=== PATIENT | female | born 1960 | race Hispanic/Latino ===

== ENCOUNTER 2016-06-22 12:22 | Inpatient (IN) | payer OTHER ==
[~2016-06-22] VITALS: Ht 162.6 cm; Wt 111.3 kg
--- NOTE | 2016-06-22 13:50 | REP ---
LEFT UPPER EXTREMITY DUPLEX VENOUS ULTRASOUND: HISTORY: Numbness in the left hand. Pain. Deformity and swelling. FINDINGS: The left internal jugular, left axillary, left subclavian, left brachial, left basilic and left cephalic veins are anechoic and compressible on two-dimensional scanning in the left upper extremity. Color flow imaging is homogeneous. There is no evidence of DVT. IMPRESSION: Negative left upper extremity duplex venous ultrasound. No evidence of venous thrombosis. Signed by Suleman Hutchinson MD 06/22/2016 02:06 P
[2016-06-22 15:25] LABS: BASO % 0.5 % (0.0-1.0); EOS # 0.2 K/mm3 (0.0-0.50); LARGE UNSTAINED CELL # 0.1 K/mm3 (0.0-0.4); LARGE UNSTAINED CELL % 1.3 % (0.0-4.0); LYMPH # 2.9 K/mm3 (1.5-4.5); LYMPH % 36.7 % (24.0-44.0); MEAN CORPUSCULAR HEMOGLOBIN 28.9 pg (27.0-33.0); MEAN CORPUSCULAR HGB CONC 31.5 g/dl (32.0-36.5); MEAN CORPUSCULAR VOLUME 91.7 fl (80.0-96.0); MONO # 0.3 K/mm3 (0.0-0.8); MONO % 3.3 % (0.0-5.0); NEUTROPHILS # 4.3 K/mm3 (1.8-7.7); NEUTROPHILS % 56.1 % (36.0-66.0); PLATELET COUNT, AUTOMATED 286 k/mm3 (150-450); RED CELL DISTRIBUTION WIDTH 14.1 % (11.5-14.5); WHITE BLOOD COUNT 7.6 K/mm3 (4.0-10.0)
--- NOTE | 2016-06-22 15:56 | REP ---
Chest x-ray: Two views. History: Chest pain . Comparison study: No comparison studies . Findings: The lungs are well inflated and free of infiltrate. The pleural angles are sharp. The heart size is normal. Pulmonary vasculature is not increased. No significant bony abnormality is seen. EKG electrodes are noted. Impression: Negative chest x-ray. Signed by Suleman Hutchinson MD 06/22/2016 03:48 P
[2016-06-22 15:57] LABS: ANION GAP 12 MEQ/L (8-16); BLOOD UREA NITROGEN 17 MG/DL (7-18); CALCIUM LEVEL 9.6 MG/DL (8.5-10.1); CARBON DIOXIDE LEVEL 25 MEQ/L (21-32); CHLORIDE LEVEL 101 MEQ/L (98-107); CREATININE FOR GFR 1.01 MG/DL (0.55-1.02); GLOMERULAR FILTRATION RATE > 60.0 (>51); POTASSIUM SERUM 4.7 MEQ/L (3.5-5.1); SODIUM LEVEL 138 MEQ/L (136-145)
[2016-06-22 16:04] LABS: GLUCOSE, FASTING 422 MG/DL (70-105)
--- NOTE | 2016-06-22 16:56 | ECGEPIP ---
Stationary ECG Study [facility] - ED Test Date: 2016-06-22 Pat Name: MAMIE HOWARD Department: Room: - Gender: F Data Officer: frances : 1960 Requested By: KEL Larson PA-C Order Number: [id number] Reading MD: Joss Perea Measurements Intervals [place] Rate: 89 P: 50 AK: 151 QRS: 11 QRSD: 80 T: 29 QT: 361 QTc: 440 Interpretive Statements SINUS RHYTHM Electronically Signed On 06-22-2016 16:55:46 EST by Joss Perea
--- NOTE | 2016-06-22 18:10 | REPUSA ---
CT of the chest without contrast Clinical statement: rule out mass. Possible thoracic outlet syndrome. Technique: Multiple axial CT images were obtained with 5 mm cuts through the chest without administra tion of contrast. No comparison is available. Findings: There is no thoracic lymphadenopathy. The visualized portions of the thyroid gland is unrem arkable. There are no pericardial or pleural effusions. The lungs are clear. Limited imaging of the u pper abdomen does not demonstrate any acute abnormalities. Diffuse heterogeneous low attenuation of h epatic parenchyma is noted. There are no suspicious osseous lesions. Impression: 1. Unremarkable CT examination of the chest. 2. Fatty infiltration of the liver.
[2016-06-22] MEDS ORDERED: GLUCOSE 4 GM CHEW TABLET PO PRN (21:45)
[2016-06-22] MEDS ORDERED: GLUCAGON FOR INJ 1 MG VIAL (J1610) SC PRN (21:45)
[2016-06-22] MEDS ORDERED: DEXTROSE 50% 50 ML SYRINGE IV PRN (21:45)
[2016-06-22] MEDS ORDERED: ONDANSETRON 4MG/2ML VIAL (J2405) IV PRN (22:30)
[2016-06-22] MEDS ORDERED: SYNT100T PO (22:34)
[2016-06-22] MEDS ORDERED: MELO15TA4 PO (22:34)
[2016-06-22] MEDS ORDERED: METF500T PO (22:34)
--- NOTE | 2016-06-22 23:57 | EDDOCDS ---
Physician Documentation [facility] Name: Gail Garcia Age: 56 yrs Sex: Female : 1960 Arrival Date: 06/22/2016 Time: 12:22 Bed 17 Private MD: NO PRIMARY PHYSICIAN, . Disposition: 06/22/16 22:05 Hospitalization ordered by Zulma Ibanez for Inpatient Admission. Preliminary diagnosis are Thromboangiitis obliterans [Buerger's disease] - AFFECTING LEFT HAND, Pain in left hand, Hyperglycemia, unspecified. - Bed requested for 4 [place]. - Status is Inpatient Admission. jewell - Condition is Stable. - Problem is new. - Symptoms are unchanged. Historical: - Allergies: PENICILLINS; Bactrim; IV Dye; - Home Meds: 1. metformin 500 mg Oral Tb24 2 times per day 2. levothyroxine 100 mcg Oral cap 1 cap once daily - PMHx: Diabetes - NIDDM: controlled; Thyroid problem; Arthritis; - PSHx: ganglion removed ankles; left breast surgery; Tubal ligation; D & C; - Social history: Smoking status: Patient states former smoker of tobacco. No barriers to communication noted, The patient speaks fluent Greek, Speaks appropriately for age. - Family history: Not pertinent. - : The pt / caregiver states he / she is not on anticoagulants. Home medication list is obtained from the patient. - Exposure Risk Screening:: None identified. Vital Signs: 06/22 12:24 BP 169 / 73; Pulse 104; Resp 18 S; Temp 98.3(O); Pulse Ox 100% on R/A; Weight 109.77 kg gr2 / 242 lbs (R); Height 5 ft. 4 in. (162.56 cm) (R); Pain 8/10; 14:51 Pulse 102 MON; Pulse Ox 97% ; pml 14:51 BP 169 / 94 (auto/); pml 15:05 BP 142 / 85 (auto/); pml 15:05 Pulse 92 MON; Pulse Ox 96% ; pml 15:20 Pulse 92 MON; Pulse Ox 95% ; pml 15:20 BP 133 / 78 (auto/); pml 15:35 Pulse Ox 95% ; pml 15:35 BP 143 / 85 (auto/); pml 15:50 Pulse Ox 95% ; pml 15:50 BP 163 / 91 (auto/); pml 16:05 Pulse Ox 94% ; pml 16:05 BP 137 / 85 (auto/); pml 16:20 Pulse Ox 96% ; pml 16:20 BP 144 / 92 (auto/); pml 16:35 Pulse Ox 96% ; pml 16:35 BP 142 / 81 (auto/); pml 16:49 Pulse Ox 95% ; pml 16:50 BP 132 / 79 (auto/); pml 17:11 BP 127 / 71 (auto/); pml 17:14 Pulse 98 MON; Pulse Ox 97% ; pml 17:20 Pulse 88 MON; Pulse Ox 96% ; pml 17:20 BP 119 / 68 (auto/); pml 17:35 Pulse 84 MON; Pulse Ox 96% ; pml 17:35 BP 125 / 69 (auto/); pml 17:50 Pulse 84 MON; Pulse Ox 95% ; pml 17:50 BP 127 / 73 (auto/); pml 18:05 Pulse 86 MON; Pulse Ox 95% ; pml 18:05 BP 130 / 74 (auto/); pml 18:20 Pulse 82 MON; Pulse Ox 95% ; pml 18:20 BP 131 / 74 (auto/); pml 18:35 Pulse 84 MON; Pulse Ox 96% ; pml 18:35 BP 120 / 63 (auto/); pml 18:50 BP 140 / 77 (auto/); ko2 18:50 Pulse 84 MON; Pulse Ox 97% ; ko2 19:04 Pulse 86 MON; Pulse Ox 97% ; ko2 19:05 BP 143 / 78 (auto/); ko2 19:19 BP 153 / 81 (auto/); ko2 19:19 Pulse 86 MON; Pulse Ox 96% ; ko2 19:21 BP 153 / 81; Pulse 86; Resp 18; Temp 97.7(TE); Pulse Ox 96% on R/A; Pain 5/10; surinder 19:35 BP 156 / 86 (auto/); ko2 19:35 Pulse 84 MON; Pulse Ox 98% ; ko2 19:50 BP 155 / 92 (auto/); ko2 19:50 Pulse 84 MON; Pulse Ox 98% ; ko2 23:26 BP 134 / 70; Pulse 89; Resp 16; Temp 97.7; Pulse Ox 98% ; Pain 5/10; ko2 12:24 Body Mass Index 41.54 (109.77 kg, 162.56 cm) gr2 MDM: 13:00 DVT US Upper Ordered. EDMS 14:38 Sprigger ordered. jk8 14:38 DVT US Upper Reviewed. jk8 14:39 Chest, 2 View (pa\E\lat) Ordered. EDMS 14:43 ECG WITH READING ER PHYS+CARDIAG ordered. EDMS 15:05 CBC with Diff Ordered. EDMS 15:05 BMP Ordered. EDMS 15:05 Cardiac Marker Panel Ordered. EDMS 15:25 DVT US Upper Reviewed. jk8 15:50 Financial registration complete. gjb 15:53 [facility] Payment Agreement was scanned into [employer] and attached to record. gjb 16:02 CBC with Diff Reviewed. jk8 16:09 Chest, 2 View (pa\E\lat) Reviewed. jk8 16:21 Cardiac Marker Panel Reviewed. jk8 16:21 BMP Reviewed. jk8 16:48 IV Saline Lock ordered. jk8 16:48 NS 0.9% 1000 ml IV at bolus once ordered. jk8 16:56 CT Chest Without Contrast Ordered. EDMS 19:19 Accucheck ordered. jk8 19:31 Fingerstick Blood Sugar Ordered. EDMS 19:56 MRI Screening Tool - Place on chart, inform RN ordered. dt4 19:56 [facility] ordered. dt4 19:57 ED course: SPOKE WITH DR. IBANEZ (HOSPITALIST) REGARDING THIS PT. ADVISED TO GET MRA OF THE dt4 LEFT SHOULDER/ARM AND SPEAK WITH HIM AGAIN WITH RESULTS. SPOKE WITH PT AND FAMILY MEMBER AT THIS TIME AND ALL IN AGREEMENT OF MRA AT THIS TIME. PT STATES HAD REACTION TO CT DYE IN THE PAST, BUT NOT MRI. PT VOICED UNDERSTANDING FOR MRA AT THIS TIME. RESTING IN BED IN NAD AT THIS TIME.. 19:58 [facility] Order complete. ajs 19:58 MRI Screening Tool - Place on chart, inform RN complete. ajs 20:24 ED course: AT THIS TIME, DR. IBANEZ CALLED AND SPOKE WITH DR. PERDUE (RADIOLOGY) AND HE WILL dt4 COME IN TO PERFORM THE MRA ON THIS PT. WILL DISCUSS RESULTS WITH DR. IBANEZ WHEN RECEIVED. . 20:30 MRA FOREARM W/O FOLL BY WITH Ordered. EDMS 21:14 NS 0.9% 500 ml IV at bolus once ordered. dt4 21:15 HEMOGLOBIN A1C Ordered. EDMS 21:51 ED course: CALL PLACED TO [facility] [place] AT THIS TIME, PER DR. IBANEZ, TO SPEAK WITH VASCULAR dt4 SURGEON REGARDING THIS PT'S MRI REPORT (CONSISTENT WITH BUERGER'S DISEASE). ADVISED IF NO SURGICAL INTERVENTION NEEDED TONIGHT, DRSara IBANEZ WILL ADMIT TO HIS SERVICE FOR GLUCOSE CONTROL. . 21:55 BED REQUEST+ADM ordered. EDMS 22:05 ED course: SPOKE WITH DR. CAMP, VASCULAR SURGEON AT [facility] IN [place], [facility]. ADVISED THERE IS NO VASCULAR INTERVENTION NEEDED OR AVAILABLE AT THIS TIME. ADVISED WHEN VASCULAR ISSUE OCCUR DISTAL TO THE WRIST, IT SHOULD BE ADDRESSED BY A HAND SURGEON. . 22:29 ELECTROCARDIOGRAM ADULT ordered. EDMS 22:29 ERYTHROCYTE SEDIMENTATION RATE Ordered. EDMS 22:29 THYROID PROFILE Ordered. EDMS 22:29 CARDIAC RISK PROFILE Ordered. EDMS 22:29 COMPLETE BLOOD COUNT Ordered. EDMS 22:30 BASIC METABOLIC PROFILE Ordered. EDMS 22:30 MAGNESIUM LEVEL Ordered. EDMS 22:32 Admission / Observation Status ordered. EDMS 22:32 CONSISTENT CARBOHYDRATES ordered. EDMS 22:33 CARDIAC MARKER PANEL Ordered. EDNV Point of Care Testing: Blood Glucose: 19:25 Blood Glucose: 294 mg/dL; ko2 Ranges: Administered Medications: 17:16 Drug: NS 0.9% 1000 ml [sodium chloride 0.9 % injection solution] Route: IV; Rate: pml bolus; Site: right antecubital; 21:49 Drug: NS 0.9% 500 ml [sodium chloride 0.9 % intravenous solution] Route: IV; Rate: ko2 bolus; Site: right antecubital; Signatures: Dispatcher [employer] ED[facility] Paris Heath RN RN srm Newman, Jill New, RN RN jan Lopresti, Mary-Elizabeth, Cloth Winder Machine Operator Unit ml3 Rosmery Malik Paulina, RN RN pml Tschudi, Diane, PA-C PA-C dtMahesh Gaines PA-C PA-C jk8 Beck, Gabriela gjb Ogden, Kari RN ko2 The chart was reviewed and I authenticate all verbal orders and agree with the evaluation and treatment provided.Corrections: (The following items were deleted from the chart) 16:58 16:49 CT Chest with contrast+CT ordered. EDMS EDMS 22:33 22:29 C REACTIVE PROTEIN QUANTITATIV ordered. EDMS EDMS Attachments: 15:53 [facility] Payment Agreement gjb [email or web address]
--- NOTE | 2016-06-22 23:57 | EDDOCDS ---
Nurse's Notes [facility] Name: Mamie Howard Age: 56 yrs Sex: Female : 1960 Arrival Date: 06/22/2016 Time: 12:22 Bed 17 Private MD: NO PRIMARY PHYSICIAN, . Diagnosis: Thromboangiitis obliterans [Buerger's disease]-AFFECTING LEFT HAND;Pain in left hand;Hyperglycemia, unspecified Presentation: 06/22 12:36 Presenting complaint: Patient states: le3ft arm numbness pain and turning blue since srm last night. tingling and pain for a few days. no injury. Adult Sepsis Screening: The patient does not have new or worsening altered mentation. Patient's respiratory rate is less than 22. Systolic blood pressure is greater than 100. Patient has a qSOFA score of 0- Negative Sepsis Screen. Suicide/Homicide risk assessment- the patient denies having any suicidal and/or homicidal ideations and does not present with any other emotional, behavioral or mental health complaints. Status: Patient is not a service supervisor or dependent. Transition of care: patient was not received from another setting of care. 12:36 Method Of Arrival: Walkin/Carried/Asstd srm 12:36 Acuity: YAYA Level 3 srm Triage Assessment: 12:39 General: Appears in no apparent distress, Behavior is appropriate for age, cooperative. srm Pain: Pain currently is 8 out of 10 on a pain scale. Musculoskeletal: Circulation, motion, and sensation intact Capillary refill < 3 seconds in bilateral fingers. 12:40 Pt Declines HIV testing. srm Historical: - Allergies: PENICILLINS; Bactrim; IV Dye; - Home Meds: 1. metformin 500 mg Oral Tb24 2 times per day 2. levothyroxine 100 mcg Oral cap 1 cap once daily - PMHx: Diabetes - NIDDM: controlled; Thyroid problem; Arthritis; - PSHx: ganglion removed ankles; left breast surgery; Tubal ligation; D & C; - Social history: Smoking status: Patient states former smoker of tobacco. No barriers to communication noted, The patient speaks fluent [place], Speaks appropriately for age. - Family history: Not pertinent. - : The pt / caregiver states he / she is not on anticoagulants. Home medication list is obtained from the patient. - Exposure Risk Screening:: None identified. Screenin:20 Screening information is obtained from the patient. Fall risk: No risks identified. pml Assistance ADL's: requires no assistance with activities of daily living. Abuse/DV Screen: The patient / caregiver reports he/she is: not in a situation that causes fear, pain or injury. Nutritional screening: No deficits noted. Advance Directives: Currently, there is no health care proxy. home support is adequate. Assessment: 15:20 General: Appears in no apparent distress, Behavior is appropriate for age, cooperative. pml Pain: Location: left hand Pain currently is 4 out of 10 on a pain scale. Neurological: Level of Consciousness is awake, alert, Oriented to person, place, time. Cardiovascular: Capillary refill < 3 seconds. Respiratory: Airway is patent Respiratory effort is even, unlabored. GI: Abdomen is non- distended. Derm: Skin is pink, warm & dry. dusky and blue tinged to left 5th, 4th and 3rd finger. pt reports numbness and feeling like fingers are "freezing" skin warm to touch, sensation intact, ROM intact. 16:12 General: Resting on stretcher, no apparent distress. resps easy and unlabored, skin pml color unchange. PA in to see patient. 17:16 General: Appears in no apparent distress, Behavior is appropriate for age, cooperative. pml Pain: Location: left hand. Neurological: Level of Consciousness is awake, alert, Oriented to person, place, time. Cardiovascular: Capillary refill < 3 seconds. Respiratory: Airway is patent Respiratory effort is even, unlabored. GI: Abdomen is non- distended. Derm: Skin is pink, warm & dry. skin color to left 5th, 4th and 3rd finger remain dusky and bluish in color. warm to touch. 18:40 General: resting on stretcher, resps easy and unlabored, skin p/w/d. no changes in skin pml color at fingers. voices no complaints. family at bedside. 19:14 General: Appears in no apparent distress, comfortable, Behavior is appropriate for age, ko2 cooperative. Pain: Location: left hand. Neurological: Level of Consciousness is awake, alert. Cardiovascular: Capillary refill < 3 seconds. Respiratory: Airway is patent Respiratory effort is even, unlabored. Derm: Skin is pink, warm & dry. Left hand middle, ring and pinky finger light blue in color warm to touch. ROM intact. Musculoskeletal: Range of motion intact in all extremities. 20:10 General: Appears in no apparent distress, comfortable, Behavior is appropriate for age, ko2 cooperative. Neurological: Level of Consciousness is awake, alert. Respiratory: Airway is patent Respiratory effort is even, unlabored. Derm: Skin is pink, warm & dry. 21:12 General: Pt in MRI. ko2 22:06 General: Appears in no apparent distress, pt watching movie on Ipad. . Neurological: ko2 Level of Consciousness is awake, alert. Respiratory: Airway is patent Respiratory effort is even, unlabored. Musculoskeletal: Range of motion intact in all extremities. 22:56 General: Appears in no apparent distress, Behavior is cooperative, Smells of. ko2 Neurological: Level of Consciousness is awake, alert, Oriented to person, place, time. Respiratory: Airway is patent Respiratory effort is even, unlabored. Derm: Skin is pink, warm & dry. 23:40 General: Appears in no apparent distress, comfortable. Neurological: Level of ko2 Consciousness is awake, alert. Respiratory: Airway is patent Respiratory effort is even, unlabored. Derm: Skin is pink, warm & dry. Vital Signs: 12:24 BP 169 / 73; Pulse 104; Resp 18 S; Temp 98.3(O); Pulse Ox 100% on R/A; Weight 109.77 kg gr2 (R); Height 5 ft. 4 in. (162.56 cm) (R); Pain 8/10; 14:51 Pulse 102 MON; Pulse Ox 97% ; pml 14:51 BP 169 / 94 (auto/); pml 15:05 BP 142 / 85 (auto/); pml 15:05 Pulse 92 MON; Pulse Ox 96% ; pml 15:20 Pulse 92 MON; Pulse Ox 95% ; pml 15:20 BP 133 / 78 (auto/); pml 15:35 Pulse Ox 95% ; pml 15:35 BP 143 / 85 (auto/); pml 15:50 Pulse Ox 95% ; pml 15:50 BP 163 / 91 (auto/); pml 16:05 Pulse Ox 94% ; pml 16:05 BP 137 / 85 (auto/); pml 16:20 Pulse Ox 96% ; pml 16:20 BP 144 / 92 (auto/); pml 16:35 Pulse Ox 96% ; pml 16:35 BP 142 / 81 (auto/); pml 16:49 Pulse Ox 95% ; pml 16:50 BP 132 / 79 (auto/); pml 17:11 BP 127 / 71 (auto/); pml 17:14 Pulse 98 MON; Pulse Ox 97% ; pml 17:20 Pulse 88 MON; Pulse Ox 96% ; pml 17:20 BP 119 / 68 (auto/); pml 17:35 Pulse 84 MON; Pulse Ox 96% ; pml 17:35 BP 125 / 69 (auto/); pml 17:50 Pulse 84 MON; Pulse Ox 95% ; pml 17:50 BP 127 / 73 (auto/); pml 18:05 Pulse 86 MON; Pulse Ox 95% ; pml 18:05 BP 130 / 74 (auto/); pml 18:20 Pulse 82 MON; Pulse Ox 95% ; pml 18:20 BP 131 / 74 (auto/); pml 18:35 Pulse 84 MON; Pulse Ox 96% ; pml 18:35 BP 120 / 63 (auto/); pml 18:50 BP 140 / 77 (auto/); ko2 18:50 Pulse 84 MON; Pulse Ox 97% ; ko2 19:04 Pulse 86 MON; Pulse Ox 97% ; ko2 19:05 BP 143 / 78 (auto/); ko2 19:19 BP 153 / 81 (auto/); ko2 19:19 Pulse 86 MON; Pulse Ox 96% ; ko2 19:21 BP 153 / 81; Pulse 86; Resp 18; Temp 97.7(TE); Pulse Ox 96% on R/A; Pain 5/10; surinder 19:35 BP 156 / 86 (auto/); ko2 19:35 Pulse 84 MON; Pulse Ox 98% ; ko2 19:50 BP 155 / 92 (auto/); ko2 19:50 Pulse 84 MON; Pulse Ox 98% ; ko2 23:26 BP 134 / 70; Pulse 89; Resp 16; Temp 97.7; Pulse Ox 98% ; Pain 5/10; ko2 12:24 Body Mass Index 41.54 (109.77 kg, 162.56 cm) gr2 Vitals: 12:24 Log In Time: June 22, 2016 at 12:24. gr2 ED Course: 12:23 Patient visited by Rodney Daniels. gr2 12:23 Patient moved to Waiting gr2 12:24 NO PRIMARY PHYSICIAN, . is Private Physician. gr2 12:27 Patient visited by Rodney Daniels. gr2 12:27 Patient moved to Pre RCE gr2 12:36 Triage Initiated srm 13:05 Patient moved to Ultrasound am17 13:10 Patient moved to Triage 3 jf3 13:11 Patient moved to Pre RCE srm 13:11 Patient moved to Triage 3 srm 14:13 DVT US Upper Returned. EDMS 14:29 Mahesh Escalona PA-C is PHCP. jk8 14:29 Leena Morales MD is Attending Physician. jk8 14:29 Patient visited by Mahesh Escalona PA-C. jk8 14:29 Patient visited by Mahesh Escalona PA-C. jk8 14:39 Christine Spencer,RN is Primary Nurse. js13 14:39 Patient moved to 17 js13 14:47 DVT US Upper Returned. EDMS 14:52 Patient visited by Leena Dillard. sew 14:52 media monitor on. Pulse ox on. NIBP on. sew 14:52 EKG done. (by ED staff). Reviewed by Mahesh Escalona PA-C. sew 15:20 The patient / caregiver is instructed regarding the plan of care and ED course. Patient pml has correct armband on for positive identification. Placed in gown. Bed in low position. Call light in reach. Side rails up X2. 15:22 Patient visited by Christine Spencer RN. pml 15:53 [facility] Payment Agreement was scanned into [employer] and attached to record. gjb 16:02 Chest, 2 View (pa\\E\\lat) Returned. EDMS 16:08 Notified physician's tutoring assistant of Lorin BOYD notified of serum glucose of 422 mg/dl. kpj 16:12 Patient visited by Christine Spencer,EMMA. pml 17:18 Patient visited by Mahesh Escalona PA-C. jk8 17:18 Patient visited by Christine Spencer RN. pml 17:19 EKG-ADULT Returned. EDMS 18:35 Patient visited by Dee Deal PCA. surinder 18:40 CT Chest Without Contrast Returned. EDMS 18:41 Patient visited by Christine Spencer RN. pml 19:14 Patient visited by Julia Ibanez RN. ko2 19:22 Patient visited by Dee Deal PCA. surinder 19:34 Julia Ibanez,EMMA is Primary Nurse. ko2 19:34 Primary Nurse role handed off by Christine Spencer RN ko2 19:36 PHCP role handed off by Mahesh Escalona PA-C dt4 19:36 Leah Schaffer PA-C is PHCP. dt4 19:54 Patient visited by Leah Schaffer PA-C. dt4 20:12 Patient visited by Julia Ibanez RN. ko2 21:00 Patient moved to [facility] ajs 21:13 Patient visited by Julia Ibanez RN. ko2 21:28 Patient moved to btw 22:03 Zulma Luo is Hospitalizing Provider. dt4 22:05 Patient visited by Julia Ibanez RN. ko2 22:07 Patient visited by Julia Ibanez RN. ko2 23:41 No procedures done that require assistance. ko2 Administered Medications: 17:16 Drug: NS 0.9% 1000 ml [sodium chloride 0.9 % injection solution] Route: IV; Rate: pml bolus; Site: right antecubital; 21:49 Drug: NS 0.9% 500 ml [sodium chloride 0.9 % intravenous solution] Route: IV; Rate: ko2 bolus; Site: right antecubital; Point of Care Testing: Blood Glucose: 19:25 Blood Glucose: 294 mg/dL; ko2 Ranges: Order Results: Lab Order: CBC with Diff; SPEC'M 06/22/16 15:15 Test: WHITE BLOOD COUNT; Value: 7.6; Range: 4.0-10.0; Units: K/mm3; Status: F Test: RED BLOOD COUNT; Value: 4.11; Range: 4.00-5.40; Units: M/mm3; Status: F Test: HEMOGLOBIN; Value: 11.9; Range: 12.0-16.0; Abnormal: Below low normal; Units: g/dl; Status: F Test: HEMATOCRIT; Value: 37.8; Range: 36.0-47.0; Units: %; Status: F Test: MEAN CORPUSCULAR VOLUME; Value: 91.7; Range: 80.0-96.0; Units: fl; Status: F Test: MEAN CORPUSCULAR HEMOGLOBIN; Value: 28.9; Range: 27.0-33.0; Units: pg; Status: F Test: MEAN CORPUSCULAR HGB CONC; Value: 31.5; Range: 32.0-36.5; Abnormal: Below low normal; Units: g/dl; Status: F Test: RED CELL DISTRIBUTION WIDTH; Value: 14.1; Range: 11.5-14.5; Units: %; Status: F Test: PLATELET COUNT, AUTOMATED; Value: 286; Range: 150-450; Units: k/mm3; Status: F Test: NEUTROPHILS %; Value: 56.1; Range: 36.0-66.0; Units: %; Status: F Test: LYMPH %; Value: 36.7; Range: 24.0-44.0; Units: %; Status: F Test: MONO %; Value: 3.3; Range: 0.0-5.0; Units: %; Status: F Test: EOS %; Value: 2.0; Range: 0.0-3.0; Units: %; Status: F Test: BASO %; Value: 0.5; Range: 0.0-1.0; Units: %; Status: F Test: LARGE UNSTAINED CELL %; Value: 1.3; Range: 0.0-4.0; Units: %; Status: F Test: NEUTROPHILS #; Value: 4.3; Range: 1.8-7.7; Units: K/mm3; Status: F Test: LYMPH #; Value: 2.9; Range: 1.5-4.5; Units: K/mm3; Status: F Test: MONO #; Value: 0.3; Range: 0.0-0.8; Units: K/mm3; Status: F Test: EOS #; Value: 0.2; Range: 0.0-0.50; Units: K/mm3; Status: F Test: BASO #; Value: 0.0; Range: 0.0-0.2; Units: K/mm3; Status: F Test: LARGE UNSTAINED CELL #; Value: 0.1; Range: 0.0-0.4; Units: K/mm3; Status: F Lab Order: [facility]; SPEC'M 06/22/16 15:15 Test: GLUCOSE, FASTING; Value: 422; Range: 70-105; Abnormal: Above upper panic limits; Units: MG/DL; Status: F Test: BLOOD UREA NITROGEN; Value: 17; Range: 7-18; Units: MG/DL; Status: F Test: CREATININE FOR GFR; Value: 1.01; Range: 0.55-1.02; Units: MG/DL; Status: F Test: GLOMERULAR FILTRATION RATE; Value: > 60.0; Range: >51; Status: F Test: SODIUM LEVEL; Value: 138; Range: 136-145; Units: MEQ/L; Status: F Test: POTASSIUM SERUM; Value: 4.7; Range: 3.5-5.1; Units: MEQ/L; Status: F Test: CHLORIDE LEVEL; Value: 101; Range: 98-107; Units: MEQ/L; Status: F Test: CARBON DIOXIDE LEVEL; Value: 25; Range: 21-32; Units: MEQ/L; Status: F Test: ANION GAP; Value: 12; Range: 8-16; Units: MEQ/L; Status: F Test: CALCIUM LEVEL; Value: 9.6; Range: 8.5-10.1; Units: MG/DL; Status: F Test Note: ; Units are mL/min/1.73 m2 Chronic Kidney Disease Staging per NKF: Stage I & II GFR >=60 Normal to Mildly Decreased Stage III GFR 30-59 Moderately Decreased Stage IV GFR 15-29 Severely Decreased Stage V GFR <15 Very Little GFR Left ESRD GFR <15 on MEAT HANGER Lab Order: Cardiac Marker Panel; SPEC'M 06/22/16 15:15 Test: CPK CREATINE PHOSPHOKINASE; Value: 193; Range: 26-192; Abnormal: Above high normal; Units: U/L; Status: F Test: CK-MB VALUE MASS; Value: 1.7; Range: 0.0-3.6; Units: NG/ML; Status: F Test: MB/CK RELATIVE INDEX; Value: 0.88; Range: < OR =4; Status: F Test: TROPONIN I; Value: < 0.02; Range: < 0.10; Units: NG/ML; Status: F Test Note: ; DIAGNOSIS CRITERIA MMB ng/ml Relative Index (RI) NON-AMI < or = 5 N/A [place]LEY [place]ONE > 5 < or = 4 AMI > 5 > 4 Lab Order: Fingerstick Blood Sugar; [facility] 06/22/16 19:24 Test: BEDSIDE GLUCOSE; Value: 294; Range: 70-105; Abnormal: Above high normal; Units: MG/DL; Status: F Lab Order: HEMOGLOBIN A1C; [facility] 06/22/16 15:15 Test: HEMOGLOBIN A1c; Value: 12.6; Range: 4.5-6.2; Abnormal: Above high normal; Units: %; Status: F Test: ESTIMATED AVERAGE GLUCOSE; Value: 315; Range: 60-110; Abnormal: Above high normal; Units: MG/DL; Status: F Lab Order: ERYTHROCYTE SEDIMENTATION RATE; [facility] 06/22/16 15:15 Test: ERYTHROCYTE SEDIMENTATION RATE; Value: 56; Range: 0-30; Abnormal: Above high normal; Units: mm/hr; Status: F Lab Order: C REACTIVE PROTEIN QUANTITATIV; [facility] 06/22/16 15:15 Test: C REACTIVE PROTEIN QUANTITATIV; Value: 1.12; Range: 0.00-0.30; Abnormal: Above high normal; Units: MG/DL; Status: F Lab Order: CARDIAC MARKER PANEL; [facility] 06/22/16 22:40 Test: CPK CREATINE PHOSPHOKINASE; Value: 175; Range: 26-192; Units: U/L; Status: F Test: CK-MB VALUE MASS; Value: 1.5; Range: 0.0-3.6; Units: NG/ML; Status: F Test: MB/CK RELATIVE INDEX; Value: 0.85; Range: < OR =4; Status: F Test: TROPONIN I; Value: < 0.02; Range: < 0.10; Units: NG/ML; Status: F Test Note: ; DIAGNOSIS CRITERIA MMB ng/ml Relative Index (RI) NON-AMI < or = 5 N/A [place] ZONE > 5 < or = 4 AMI > 5 > 4 Radiology Order: DVT US Upper Test: DVT US Upper REASON FOR EXAMINATION: Deformity/Swelling; LEFT UPPER EXTREMITY DUPLEX VENOUS ULTRASOUND:; ; HISTORY: Numbness in the left hand. Pain. Deformity and swelling.; ; FINDINGS: The left internal jugular, left axillary, left subclavian, left; brachial, left basilic and left cephalic veins are anechoic and compressible on; two-dimensional scanning in the left upper extremity. Color flow imaging is; homogeneous. There is no evidence of DVT.; ; IMPRESSION:; ; Negative left upper extremity duplex venous ultrasound. No evidence of venous; thrombosis.; ; ; Signed by; Suleman Hutchinson MD 06/22/2016 02:06 P; Radiology Order: Chest, 2 View (pa\\E\\lat) Test: Chest, 2 View (pa\\E\\lat) REASON FOR EXAMINATION: cp; Chest x-ray: Two views.; ; History: Chest pain .; ; Comparison study: No comparison studies .; ; Findings: The lungs are well inflated and free of infiltrate. The pleural; angles are sharp. The heart size is normal. Pulmonary vasculature is not; increased. No significant bony abnormality is seen. 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 Possible thoracic outlet syndrome.; Technique: Multiple axial CT images were obtained with 5 mm cuts through the chest without administra; tion of contrast.; No comparison is available.; Findings: There is no thoracic lymphadenopathy. The visualized portions of the thyroid gland is unrem; arkable. There are no pericardial or pleural effusions. The lungs are clear. Limited imaging of the u; pper abdomen does not demonstrate any acute abnormalities. Diffuse heterogeneous low attenuation of h; epatic parenchyma is noted. There are no suspicious osseous lesions.; Impression:; 1. Unremarkable CT examination of the chest.; 2. Fatty infiltration of the liver.; ; Outcome: 19:19 Discharge ordered by Provider. jk8 22:05 Decision to Hospitalize by Provider. dt4 23:40 Discharge Assessment: Patient awake, alert and oriented x 3. No cognitive and/or ko2 functional deficits noted. Patient verbalized understanding of disposition instructions. patient administered narcotics - no. The following High Risk Discharge criteria are identified: None. Admitted to Med/Surg accompanied by tech, via wheelchair, with chart. Condition: stable. CT Study completed. MRI Study completed. Property :Personal belongings accompany Pt. 23:41 Admission hand-off: Report Faxed Fax receipt verified by Elizabeth Arevalo RN 4 PAV. ko2 23:57 Patient left the ED. jewell Signatures: Dispatcher [employer] EDMS Dorothy Clayton, RN Paris Cavanaugh, RN Tiffany Harry RN Cristhian Centeno PA PA btw Toyin, Dee, AMPHIBIOUS OPERATIONS OFFICER AMPHIBIOUS OPERATIONS OFFICER surinder King, Christine GleasonRN RN Shirley Vogt,RN RN js13 Leena Dillard Gainslee gr2 Shikha Henning am17 Leah Schaffer, PA-C PA-C dt4 Julia IbanezRN RN ko2 Mahesh Escalona PA-C PA-C jk8 Alvaro Bautista RN RN [id number] Sara Cuenca MTDD
[2016-06-22 23:58] VITALS: BP 141/96
[2016-06-23] MEDS ORDERED: amLODIPine 5 MG TAB PO ONE
[2016-06-23] MEDS ORDERED: ASPIRIN 325 MG TAB PO ONE
[2016-06-23] MEDS ORDERED: ATORVASTATIN 20 MG TAB PO ONE (00:02)
[2016-06-23] MEDS: LEVEMIR (INSULIN DETEMIR) 1 UNITS/0.01ML SC SCH ×2 (00:34→21:04)
[2016-06-23] MEDS: SENOKOT S TAB PO SCH ×3 (00:52→21:04)
--- NOTE | 2016-06-23 01:05 | HPE ---
DATE OF ADMISSION: 06/22/2016 PRIMARY CARE PROVIDER: Yaniv Garcia Jr. [place] CHIEF COMPLAINT: Left fifth and third digit pain, numbness and turning fernandez and dusky. HISTORY OF PRESENT ILLNESS: This is a 56-year-old female patient with underlying medical history of diabetes, poorly controlled, type 2, hypothyroidism, osteoarthritis, here in [place] for a visit who presented with a 1-day history as per patient of left fifth and third digit turning blue. As per patient, it was intermittent, relieved with exercise and massages, worsened when elevating her arm. Also, for the past couple of days she has been having pain in her left hand and wrist as well worsened with movement. Denies any trauma. Denies any history of this occurring. Patient is a former smoker and poorly controlled diabetes. As per patient, was compliant with her diabetic regimen, but has not seen a doctor since last year in October. Her insulin log has only been updated until December of last year. Denies any chest pain, pressure, or discomfort. Denies any shortness of breath. Patient is obese. Please refer to consultation report that was done earlier. ALLERGIES: PENICILLIN, BACTRIM, IV CONTRAST DYE. HOME MEDICATIONS: - metformin 500 mg by mouth twice a day - Synthroid 100 mcg by mouth daily - Mobic 15 mg by mouth daily PAST MEDICAL HISTORY: 1. Type 2 diabetes. 2. Hypothyroidism. 3. Osteoarthritis. PAST SURGICAL HISTORY: 1. Gangrene and removal of left ankle. 2. Gangrene and cyst removal of left ankle. 3. Left breast lumpectomy without lymph node dissection. 4. Tubal ligation. 5. Dilatation and curettage (D C). SOCIAL HISTORY: Patient is a former smoker quit 4-1/2 years ago, one pack per day smoking for 30+ years. Denies alcohol drinking. FAMILY HISTORY: Noncontributory. REVIEW OF SYSTEMS: Negative except for those mentioned in the history of present illness (HPI). PHYSICAL EXAMINATION: VITAL SIGNS: Blood pressure 169/73, pulse 92, respirations 18, temperature 98.3, pulse oximetry 100% on room air. GENERAL: The patient is alert, and oriented times three, in no acute distress, obese. HEENT: Normocephalic, atraumatic. PULMONARY: Bilaterally clear to auscultation. CARDIAC: Regular rate and rhythm; normal S1, S2. ABDOMEN: Soft, nontender, and nondistended. EXTREMITIES: No edema bilateral lower extremities. DP and PT pulses bilateral 1+, radial and ulnar pulses 2+ bilateral. Left hand with fifth and third digit feeling a bit cooler and looking greyer than the other fingers. LABORATORY: WBC 7.6, hemoglobin and hematocrit 11.9/37.8, platelets 286. Chemistry: Sodium 138, potassium 4.7, chloride 101, bicarbonate 25, BUN 17, creatinine 1, glucose 422, A1c 22.6. ASSESSMENT AND PLAN: This is a 56-year-old female patient with underlying medical history of poorly controlled type 2 diabetes, hypothyroidism, osteoarthritis, who presented with left fifth and third digit fernandez and pale and turning blue and pain. 1. Buerger's disease. MRI appreciated of left forearm, wrist, and hand showing radial and ulnar pulses that are intact. Multifocal atherosclerotic occlusive disease of the carpal arch and their branches in the hands extensively consistent of Buerger's disease. The case was presented to [place] vascular surgeon, Dr. Mariano by emergency room provider. As per Dr. Mariano, no surgical intervention at this time. Patient is placed on Norvasc as well as aspirin and statin. Will admit the patient for glycemic control. Hand exercise education provided. Patient will need outpatient followup. 2. Poorly controlled type 2 diabetes. A1c is appreciated. Followup fingersticks. Holding metformin given possibility of further studies with contrast. Patient is to resume metformin as an outpatient. Starting Levemir 10 units subcutaneous at bedtime. Diabetic teaching. Patient will be discharged on insulin. Mealtime insulin as per protocol. Followup lipid panel. 3. Hypertension. Norvasc has been added for vasodilatory effect given patient has Buerger's disease and we will continue to monitor blood pressure, and adjust medication as needed. 4. Hypothyroidism. Followup thyroid profile, continue Synthroid. 5. Osteoarthritis. Continue home medications. 6. Deep vein thrombosis (DVT) prophylaxis. Heparin subcutaneous. DISPOSITION PLANNING: Likely discharge in the next 24 hours after diabetic teaching and better control of patient's glucose.
--- NOTE | 2016-06-23 02:08 | CR ---
DATE OF CONSULTATION: 06/22/2016 CONSULTATION REPORT FOR: Physician delivery assistant (DEB) Jacqui in the emergency room. REASON FOR CONSULTATION: Finger ischemia of left hand. HISTORY OF PRESENT ILLNESS: This is a 56-year-old female patient with underlying medical history of poorly controlled type 2 diabetes, morbid obesity, hypothyroidism. Patient was visiting from [place]. Primary care provider Dustin Headley Jr. from [place]. Osteoarthritis and peripheral artery disease. Patient presented with, as per patient, for a few days with numbness and tingling sensation of patient's left hand and also pain of the left hand, worsened with movement, but as of this morning patient reported that her 5th and 3rd finger is cold and dusky and also improved with massages and movement, but comes back and also worsened with arm elevation. Patient denies any chest pain, pressure or discomfort. Denies any fevers or chills. Denies any trauma. Subsequently, presented to the emergency department (ED). In the emergency room, patient's CT scan of the chest was done to rule out any obstructive mass, which was negative. Chest x-ray was negative. Ultrasound Doppler is negative for deep venous thrombosis (DVT) of left upper extremity. Subsequently, medicine is consulted for further recommendation. ALLERGIES: PENICILLIN, INTRAVENOUS (IV) CONTRAST, BACTRIM. HOME MEDICATIONS: - metformin 500 mg by mouth twice a day - Synthroid 100 mcg by mouth daily - Mobic 15 mg by mouth daily PAST MEDICAL HISTORY: 1. Type 2 diabetes, poorly controlled. 2. Hypothyroidism. 3. Osteoarthritis. 4. Peripheral artery disease. PAST SURGICAL HISTORY: 1. Left ankle ganglion cyst removal. 2. Left breast surgery with lumpectomy, no lymph node dissection as per patient. 3. Tubal ligation. 4. Dilation and curettage (D and C). SOCIAL HISTORY: Patient is a former smoker, quit 4-1/2 years ago. One pack per day smoking for 10 years. Also obesity. Denies alcohol drinking. FAMILY HISTORY: Noncontributory. REVIEW OF SYSTEMS: Negative except for those mentioned in the history of present illness (HPI). PHYSICAL EXAMINATION: VITAL SIGNS: Blood pressure 169/73, pulse 84, respirations 18, temperature 98.3, pulse oximetry 100% on room air. GENERAL: Patient obese, alert and oriented times three in no acute distress. HEENT: Normocephalic, atraumatic. PULMONARY: Bilaterally clear to auscultation. Distant breath sounds. CARDIAC: Regular rate and rhythm. Normal S1, S2. ABDOMEN: Soft, nontender, obese. Positive bowel sounds. EXTREMITIES: Bilateral lower extremities no edema. Dorsalis pedis (DP), posterior tibialis (PT) pulses 1+ bilaterally. Bilateral radial and ulnar pulses also 2+. Left hand 5th and 3rd digit is cold and dusky. Brachial pulses bilateral also intact. LABORATORY: WBC 7.6, hemoglobin and hematocrit 11.9/37.8, platelets 286. Chemistry: Sodium 138, potassium 4.7, chloride 101, bicarbonate 25, BUN 17, creatinine 1, glucose 422. Cardiac enzymes negative times one. ASSESSMENT AND PLAN: This is a 56-year-old female patient with underlying medical history of poorly controlled type 2 diabetes, hypothyroidism, osteoarthritis, peripheral artery disease, presented with dusky and ischemic changes of patient's digits, 5th and 3rd on the left hand. 1. Ischemic left hand fingers. Will need vascular studies with MRA. Given patient cannot tolerate intravenous (IV) contrast with history of allergy, will need vascular studies with MRA with contrast of the hand and shoulder. Will need the shoulder portion given patient stated that the ischemia is worsened with different position of the patient's arm and also need the patient's hand to assess peripheral vascular status. Will need antiplatelets in the form of either aspirin or pentoxifylline. If the MRI angiography is positive, patient will need to be transferred urgently to a facility with vascular surgery capabilities. If it is negative, then it is appropriate for the patient to followup as outpatient for further management of peripheral artery disease and diabetes and to return to the hospital if symptoms worsen given patient's radial and ulnar pulse have been intact. 2. Type 2 diabetes, poorly controlled. Patient was hyperglycemic in the emergency room. Continue metformin. Recommend adding Januvia to the regimen. Furthermore, patient will need followup with primary care provider for further glucose control. Weight loss. Dietary counseling provided. Followup A1c. 3. Hypothyroidism. Continue Synthroid. Outpatient followup. DISPOSITION: Pending MRA of the left upper extremity. Patient will need to be transferred to a facility with vascular surgery capability or could be discharged for outpatient followup.
[2016-06-23 05:54] LABS: MEAN CORPUSCULAR HEMOGLOBIN 28.8 pg (27.0-33.0); MEAN CORPUSCULAR VOLUME 90.1 fl (80.0-96.0); RED CELL DISTRIBUTION WIDTH 14.3 % (11.5-14.5); WHITE BLOOD COUNT 6.8 K/mm3 (4.0-10.0)
[2016-06-23 06:00] VITALS: BP_DIAS 134
--- NOTE | 2016-06-23 06:03 | REP ---
MR angiography of the left upper extremity with intravenous gadolinium: History: Tingling and cyanosis of the third, fourth and fifth digits of the left hand. Tobacco use. Gadolinium enhancement dose: 25 ml of intravenous ProHance is administered. MR angiographic technique: MRA angiography of the left forearm, wrist and hand was acquired using 3-D gradient echo T2 technique: Source sagittal images are acquired and maximal intensity projection images are generated and viewed rotationally. MR angiographic findings: The distal brachial artery is widely patent. The radial, ulnar, and interosseous arteries are patent. Interosseous artery is visualized to the mid forearm. Radial and ulnar arteries are patent across the wrist. There is some venous overlay. The proximal and distal carpal arches are incomplete consistent with atherosclerotic occlusive disease. The digital arteries are not visualized. There is some flow in an irregular diseased and multiply stenotic tortuous vessel to what appears to be the ring finger. The other digital arteries are not well seen. Findings are compatible with Buerger's disease. Impression: MR angiography of the left forearm, wrist and hand shows radial and ulnar arteries to be intact. There is multifocal atherosclerotic occlusive disease of the carpal arches and their branches in the hand extensively consistent with Buerger's disease. Signed by Suleman Hutchinson MD 06/23/2016 02:25 P
[2016-06-23 06:11] LABS: ANION GAP 10 MEQ/L (8-16); BLOOD UREA NITROGEN 14 MG/DL (7-18); CALCIUM LEVEL 8.8 MG/DL (8.5-10.1); CARBON DIOXIDE LEVEL 26 MEQ/L (21-32); CHLORIDE LEVEL 105 MEQ/L (98-107); CHOLESTEROL LEVEL 200 MG/DL (<200); CREATININE FOR GFR 0.73 MG/DL (0.55-1.02); GLOMERULAR FILTRATION RATE > 60.0 (>51); GLUCOSE, FASTING 257 MG/DL (70-105); MAGNESIUM LEVEL 2.1 MG/DL (1.8-2.4); POTASSIUM SERUM 4.6 MEQ/L (3.5-5.1); SODIUM LEVEL 141 MEQ/L (136-145); T UPTAKE 36 % (30-39); THYROXINE (T4) 10.1 UG/DL (4.5-12.0); TRIGLYCERIDES LEVEL 180 MG/DL (<150)
[2016-06-23] MEDS: LEVOTHYROXINE 0.1 MG TAB (100 MCG) PO SCH (06:20)
[2016-06-23] MEDS: ACETAMINOPHEN TAB 650MG DOSE (2X325MG) PO PRN ×3 (06:21→18:01)
[2016-06-23] MEDS: HEPARIN SOD (PORCINE) 5000 UNITS/ML VIAL SC SCH ×3 (06:21→21:06)
[2016-06-23] MEDS ORDERED: IBUPROFEN 400 MG TAB PO ONE (06:46)
[2016-06-23] MEDS: MELOXICAM (MOBIC) 7.5 MG TAB PO SCH (09:09)
[2016-06-23] MEDS: amLODIPine 5 MG TAB PO SCH (09:09)
[2016-06-23] MEDS: PANTOPRAZOLE 40MG TAB (PROTONIX) PO SCH (09:09)
[2016-06-23] MEDS: HumaLOG INSULIN (NovoLOG) PER UNIT SC SCH ×3 (09:10→17:35)
[2016-06-23] MEDS: ASPIRIN 81 MG ENTERIC TAB PO SCH (09:10)
[2016-06-23 14:00] VITALS: BP 126/57
[2016-06-23] MEDS: IBUPROFEN 400 MG TAB PO PRN (15:23)
[2016-06-23] MEDS: ATORVASTATIN 20 MG TAB PO SCH (21:04)
[2016-06-23 22:00] VITALS: BP 120/68
[2016-06-24] MEDS: LEVOTHYROXINE 0.1 MG TAB (100 MCG) PO SCH (05:48)
[2016-06-24] MEDS: HEPARIN SOD (PORCINE) 5000 UNITS/ML VIAL SC SCH ×3 (05:49→22:02)
[2016-06-24 06:00] VITALS: BP 133/83
[2016-06-24 06:53] LABS: MEAN CORPUSCULAR HEMOGLOBIN 28.9 pg (27.0-33.0); MEAN CORPUSCULAR HGB CONC 31.5 g/dl (32.0-36.5); MEAN CORPUSCULAR VOLUME 91.7 fl (80.0-96.0); RED CELL DISTRIBUTION WIDTH 13.8 % (11.5-14.5); WHITE BLOOD COUNT 6.1 K/mm3 (4.0-10.0)
[2016-06-24 07:04] LABS: ANION GAP 9 MEQ/L (8-16); BLOOD UREA NITROGEN 16 MG/DL (7-18); CALCIUM LEVEL 8.6 MG/DL (8.5-10.1); CARBON DIOXIDE LEVEL 26 MEQ/L (21-32); CHLORIDE LEVEL 106 MEQ/L (98-107); GLOMERULAR FILTRATION RATE > 60.0 (>51); GLUCOSE, FASTING 299 MG/DL (70-105); POTASSIUM SERUM 4.1 MEQ/L (3.5-5.1); SODIUM LEVEL 141 MEQ/L (136-145)
[2016-06-24] MEDS: LEVEMIR (INSULIN DETEMIR) 1 UNITS/0.01ML SC SCH ×2 (08:15→22:03)
[2016-06-24] MEDS: HumaLOG INSULIN (NovoLOG) PER UNIT SC SCH ×3 (08:15→17:26)
[2016-06-24] MEDS: PANTOPRAZOLE 40MG TAB (PROTONIX) PO SCH (08:16)
[2016-06-24] MEDS: MELOXICAM (MOBIC) 7.5 MG TAB PO SCH (08:16)
[2016-06-24] MEDS: ASPIRIN 81 MG ENTERIC TAB PO SCH (08:16)
[2016-06-24] MEDS: amLODIPine 5 MG TAB PO SCH (08:16)
[2016-06-24] MEDS: SENOKOT S TAB PO SCH ×2 (08:16→22:02)
[2016-06-24] MEDS: IBUPROFEN 400 MG TAB PO PRN ×2 (08:21→15:42)
[2016-06-24] MEDS ORDERED: INFLUENZA QUADRIVALENT PF VACCINE 0.5ML SYRINGE/VIAL (90686) IM ONE (09:00)
--- NOTE | 2016-06-24 11:18 | IPNPDOC ---
Assessment/Plan Date Seen The patient was seen on 06/24/16. Problems Problems: (1) Buerger's disease Status: Acute Problem Text: will continue with calcium channel mireille (2) Morbid obesity Status: Chronic (3) Diabetes Status: Chronic Response to Treatment: Uncontrolled Problem Text: insulin dosage increased. (4) Hyperlipidemia Status: Chronic (5) Hypertension Status: Chronic Problem Text: continue amlodipine. Plan / VTE VTE Prophylaxis Ordered?: Yes Subjective Review of Systems CC/HPI The patient is a 56-year-old female admitted with a reason for visit of Buerger' s Disease, Hyperglycemia. Events since last encounter pain in the fingers and redness of the digits getting better. no vijay or chills, no chest pain oe Sob , no abdominal pain nausea or vomiting. Objective Physical Examination General Exam: Positive: Alert, No Acute Distress Eye Exam: Positive: Conjunctiva & lids normal, EOMI, PERRLA, Negative: Sclera icteric ENT Exam: Positive: Atraumatic, Mucous membr. moist/pink, Pharynx Normal Neck Exam: Positive: Supple, Negative: JVD, thyromegaly Chest Exam: Positive: Clear to auscultation, Normal air movement Heart Exam: Positive: Normal S1, Normal S2, Rate Normal, Regular Rhythm, Negative: Murmurs, Rubs Abdomen Exam: Positive: Normal bowel sounds, Soft, Negative: Hepatospenomegaly, Tenderness Extremity Exam: Positive: Cyanosis (in the fingers), Normal pulses, Tenderness (in the fingers), Negative: Clubbing, Edema Vital Signs/I&O Vital Signs Date Time Temp Pulse Resp B/P Pulse Ox O2 Delivery O2 Flow Rate FiO2 06/24/16 08:16 91 135/71 06/24/16 06:00 97.0 18 95 Room Air I&O- Last 24 Hours up to 6 AM 06/24/16 06:00 Intake Total 2160 ml Output Total 1850 ml Balance 310 ml Laboratory Data Labs 24H Laboratory Tests 2 06/23/16 11:31: Bedside Glucose (Misc Panel) 237H 06/23/16 16:55: Bedside Glucose (Misc Panel) 268H 06/23/16 20:40: Bedside Glucose (Misc Panel) 426H 06/24/16 06:20: Anion Gap 9, Blood Urea Nitrogen 16, Creatinine 0.70, Sodium Level 141, Potassium Level 4.1, Chloride Level 106, Carbon Dioxide Level 26, Calcium Level 8.6, Glomerular Filtration Rate > 60.0, Magnesium Level 2.0 CBC/BMP Laboratory Tests 06/24/16 06:20 Calcium Level 8.6, Red Blood Count 3.96 L, Mean Corpuscular Volume 91.7, Mean Corpuscular Hemoglobin 28.9, Mean Corpuscular Hemoglobin Concent 31.5 L, Red Cell Distribution Width 13.8 FSBS Laboratory Tests Test 06/23/16 11:31 06/23/16 16:55 06/23/16 20:40 Range/Units Bedside Glucose (Misc Panel) 237 268 426 70-105 MG/DL LEENA LYNN MD Jun 24, 2016 11:18
[2016-06-24 14:00] VITALS: BP 129/73
[2016-06-24] MEDS ORDERED: ATOR1TAB21 PO (16:06)
[2016-06-24] MEDS ORDERED: AMLO5TAB2 PO (16:06)
[2016-06-24] MEDS ORDERED: LEVE1INJ5 SC (16:06)
[2016-06-24] MEDS ORDERED: ASPI81TAEC PO (16:06)
[2016-06-24] MEDS: metFORMIN (GLUCOPHAGE) 500 MG TAB PO SCH (17:25)
[2016-06-24 22:00] VITALS: BP 126/72
[2016-06-24] MEDS: ATORVASTATIN 20 MG TAB PO SCH (22:02)
--- NOTE | 2016-06-25 00:58 | EDDOCDS ---
Physician Documentation [facility] Name: Gail Garcia Age: 56 yrs Sex: Female : 1960 Arrival Date: 06/22/2016 Time: 12:22 Bed 17 Private MD: NO PRIMARY PHYSICIAN, . Disposition: 06/22/16 22:05 Hospitalization ordered by Zulma Ibanez for Inpatient Admission. Preliminary diagnosis are Thromboangiitis obliterans [Buerger's disease] - AFFECTING LEFT HAND, Pain in left hand, Hyperglycemia, unspecified. - Bed requested for 4 [place]. - Status is Inpatient Admission. jewell - Condition is Stable. - Problem is new. - Symptoms are unchanged. Historical: - Allergies: PENICILLINS; Bactrim; IV Dye; - Home Meds: 1. metformin 500 mg Oral Tb24 2 times per day 2. levothyroxine 100 mcg Oral cap 1 cap once daily - PMHx: Diabetes - NIDDM: controlled; Thyroid problem; Arthritis; - PSHx: ganglion removed ankles; left breast surgery; Tubal ligation; D & C; - Social history: Smoking status: Patient states former smoker of tobacco. No barriers to communication noted, The patient speaks fluent Czech, Speaks appropriately for age. - Family history: Not pertinent. - : The pt / caregiver states he / she is not on anticoagulants. Home medication list is obtained from the patient. - Exposure Risk Screening:: None identified. Vital Signs: 06/22 12:24 BP 169 / 73; Pulse 104; Resp 18 S; Temp 98.3(O); Pulse Ox 100% on R/A; Weight 109.77 kg gr2 / 242 lbs (R); Height 5 ft. 4 in. (162.56 cm) (R); Pain 8/10; 14:51 Pulse 102 MON; Pulse Ox 97% ; pml 14:51 BP 169 / 94 (auto/); pml 15:05 BP 142 / 85 (auto/); pml 15:05 Pulse 92 MON; Pulse Ox 96% ; pml 15:20 Pulse 92 MON; Pulse Ox 95% ; pml 15:20 BP 133 / 78 (auto/); pml 15:35 Pulse Ox 95% ; pml 15:35 BP 143 / 85 (auto/); pml 15:50 Pulse Ox 95% ; pml 15:50 BP 163 / 91 (auto/); pml 16:05 Pulse Ox 94% ; pml 16:05 BP 137 / 85 (auto/); pml 16:20 Pulse Ox 96% ; pml 16:20 BP 144 / 92 (auto/); pml 16:35 Pulse Ox 96% ; pml 16:35 BP 142 / 81 (auto/); pml 16:49 Pulse Ox 95% ; pml 16:50 BP 132 / 79 (auto/); pml 17:11 BP 127 / 71 (auto/); pml 17:14 Pulse 98 MON; Pulse Ox 97% ; pml 17:20 Pulse 88 MON; Pulse Ox 96% ; pml 17:20 BP 119 / 68 (auto/); pml 17:35 Pulse 84 MON; Pulse Ox 96% ; pml 17:35 BP 125 / 69 (auto/); pml 17:50 Pulse 84 MON; Pulse Ox 95% ; pml 17:50 BP 127 / 73 (auto/); pml 18:05 Pulse 86 MON; Pulse Ox 95% ; pml 18:05 BP 130 / 74 (auto/); pml 18:20 Pulse 82 MON; Pulse Ox 95% ; pml 18:20 BP 131 / 74 (auto/); pml 18:35 Pulse 84 MON; Pulse Ox 96% ; pml 18:35 BP 120 / 63 (auto/); pml 18:50 BP 140 / 77 (auto/); ko2 18:50 Pulse 84 MON; Pulse Ox 97% ; ko2 19:04 Pulse 86 MON; Pulse Ox 97% ; ko2 19:05 BP 143 / 78 (auto/); ko2 19:19 BP 153 / 81 (auto/); ko2 19:19 Pulse 86 MON; Pulse Ox 96% ; ko2 19:21 BP 153 / 81; Pulse 86; Resp 18; Temp 97.7(TE); Pulse Ox 96% on R/A; Pain 5/10; surinder 19:35 BP 156 / 86 (auto/); ko2 19:35 Pulse 84 MON; Pulse Ox 98% ; ko2 19:50 BP 155 / 92 (auto/); ko2 19:50 Pulse 84 MON; Pulse Ox 98% ; ko2 23:26 BP 134 / 70; Pulse 89; Resp 16; Temp 97.7; Pulse Ox 98% ; Pain 5/10; ko2 12:24 Body Mass Index 41.54 (109.77 kg, 162.56 cm) gr2 MDM: 13:00 DVT US Upper Ordered. EDMS 14:38 Dba Manager ordered. jk8 14:38 DVT US Upper Reviewed. jk8 14:39 Chest, 2 View (pa\E\lat) Ordered. EDMS 14:43 ECG WITH READING ER PHYS+CARDIAG ordered. EDMS 15:05 CBC with Diff Ordered. EDMS 15:05 BMP Ordered. EDMS 15:05 Cardiac Marker Panel Ordered. EDMS 15:25 DVT US Upper Reviewed. jk8 15:50 Financial registration complete. gjb 15:53 [facility] Payment Agreement was scanned into [employer] and attached to record. gjb 16:02 CBC with Diff Reviewed. jk8 16:09 Chest, 2 View (pa\E\lat) Reviewed. jk8 16:21 Cardiac Marker Panel Reviewed. jk8 16:21 BMP Reviewed. jk8 16:48 IV Saline Lock ordered. jk8 16:48 NS 0.9% 1000 ml IV at bolus once ordered. jk8 16:56 CT Chest Without Contrast Ordered. EDMS 19:19 Accucheck ordered. jk8 19:31 Fingerstick Blood Sugar Ordered. EDMS 19:56 MRI Screening Tool - Place on chart, inform RN ordered. dt4 19:56 [facility] Hand Bunch Maker Order ordered. dt4 19:57 ED course: SPOKE WITH DR. IBANEZ (HOSPITALIST) REGARDING THIS PT. ADVISED TO GET MRA OF THE dt4 LEFT SHOULDER/ARM AND SPEAK WITH HIM AGAIN WITH RESULTS. SPOKE WITH PT AND FAMILY MEMBER AT THIS TIME AND ALL IN AGREEMENT OF MRA AT THIS TIME. PT STATES HAD REACTION TO CT DYE IN THE PAST, BUT NOT MRI. PT VOICED UNDERSTANDING FOR MRA AT THIS TIME. RESTING IN BED IN NAD AT THIS TIME.. 19:58 [facility] Hand Bunch Maker Order complete. ajs 19:58 MRI Screening Tool - Place on chart, inform RN complete. ajs 20:24 ED course: AT THIS TIME, DR. IBANEZ CALLED AND SPOKE WITH DR. PERDUE (RADIOLOGY) AND HE WILL dt4 COME IN TO PERFORM THE MRA ON THIS PT. WILL DISCUSS RESULTS WITH DR. IBANEZ WHEN RECEIVED. . 20:30 MRA FOREARM W/O FOLL BY WITH Ordered. EDMS 21:14 NS 0.9% 500 ml IV at bolus once ordered. dt4 21:15 HEMOGLOBIN A1C Ordered. EDMS 21:51 ED course: CALL PLACED TO [facility] AT THIS TIME, PER DR. IBANEZ, TO SPEAK WITH VASCULAR dt4 SURGEON REGARDING THIS PT'S MRI REPORT (CONSISTENT WITH BUERGER'S DISEASE). ADVISED IF NO SURGICAL INTERVENTION NEEDED TONIGHT, DRSara IBANEZ WILL ADMIT TO HIS SERVICE FOR GLUCOSE CONTROL. . 21:55 BED REQUEST+ADM ordered. EDMS 22:05 ED course: SPOKE WITH DR. CAMP, VASCULAR SURGEON AT [facility] IN [place], [facility]. ADVISED THERE IS NO VASCULAR INTERVENTION NEEDED OR AVAILABLE AT THIS TIME. ADVISED WHEN VASCULAR ISSUE OCCUR DISTAL TO THE WRIST, IT SHOULD BE ADDRESSED BY A HAND SURGEON. . 22:29 ELECTROCARDIOGRAM ADULT ordered. EDMS 22:29 ERYTHROCYTE SEDIMENTATION RATE Ordered. EDMS 22:29 THYROID PROFILE Ordered. EDMS 22:29 CARDIAC RISK PROFILE Ordered. EDMS 22:29 COMPLETE BLOOD COUNT Ordered. EDMS 22:30 BASIC METABOLIC PROFILE Ordered. EDMS 22:30 MAGNESIUM LEVEL Ordered. EDMS 22:32 Admission / Observation Status ordered. EDMS 22:32 CONSISTENT CARBOHYDRATES ordered. EDMS 22:33 CARDIAC MARKER PANEL Ordered. EDMS 02/06 10:43 T-Sheet-- Draft Copy was scanned into [employer] and attached to record. gb 10:43 ECG/EKG was scanned into [employer] and attached to record. gb 10:44 Radiology Report was scanned into [employer] and attached to record. Point of Care Testing: Blood Glucose: 02 19:25 Blood Glucose: 294 mg/dL; ko2 Ranges: Administered Medications: 17:16 Drug: NS 0.9% 1000 ml [sodium chloride 0.9 % injection solution] Route: IV; Rate: pml bolus; Site: right antecubital; 21:49 Drug: NS 0.9% 500 ml [sodium chloride 0.9 % intravenous solution] Route: IV; Rate: ko2 bolus; Site: right antecubital; Signatures: Dispatcher [employer] EDMT Paris Heath RN RN srm Newman, Jill New, RN RN jan Barnhardt, Gloria, [place] Reg Alonzo Corey, [employer] Manager Unit ml3 Rosmery Malik Paulina, RN RN pml Tschudi, Diane, PA-C PA-C dtMahesh Gaines PA-C PA-C jk8 Sara Cuenca Kari RN ko2 The chart was reviewed and I authenticate all verbal orders and agree with the evaluation and treatment provided.Corrections: (The following items were deleted from the chart) 16:58 16:49 CT Chest with contrast+CT ordered. EDMS EDMS 22:33 22:29 C REACTIVE PROTEIN QUANTITATIV ordered. EDMS EDMS Attachments: 15:53 [facility] Payment Agreement [facility] 06/23 10:43 T-Sheet-- Draft Copy gb 10:43 ECG/EKG gb Chart Complete MTDD
--- NOTE | 2016-06-25 00:58 | EDDOCDS ---
Nurse's Notes [facility] Name: Mamie Howard Age: 56 yrs Sex: Female : 1960 Arrival Date: 06/22/2016 Time: 12:22 Bed 17 Private MD: NO PRIMARY PHYSICIAN, . Diagnosis: Thromboangiitis obliterans [Buerger's disease]-AFFECTING LEFT HAND;Pain in left hand;Hyperglycemia, unspecified Presentation: 06/22 12:36 Presenting complaint: Patient states: le3ft arm numbness pain and turning blue since srm last night. tingling and pain for a few days. no injury. Adult Sepsis Screening: The patient does not have new or worsening altered mentation. Patient's respiratory rate is less than 22. Systolic blood pressure is greater than 100. Patient has a qSOFA score of 0- Negative Sepsis Screen. Suicide/Homicide risk assessment- the patient denies having any suicidal and/or homicidal ideations and does not present with any other emotional, behavioral or mental health complaints. Status: Patient is not a youth services librarian or dependent. Transition of care: patient was not received from another setting of care. 12:36 Method Of Arrival: Walkin/Carried/Asstd srm 12:36 Acuity: YAYA Level 3 srm Triage Assessment: 12:39 General: Appears in no apparent distress, Behavior is appropriate for age, cooperative. srm Pain: Pain currently is 8 out of 10 on a pain scale. Musculoskeletal: Circulation, motion, and sensation intact Capillary refill < 3 seconds in bilateral fingers. 12:40 Pt Declines HIV testing. srm Historical: - Allergies: PENICILLINS; Bactrim; IV Dye; - Home Meds: 1. metformin 500 mg Oral Tb24 2 times per day 2. levothyroxine 100 mcg Oral cap 1 cap once daily - PMHx: Diabetes - NIDDM: controlled; Thyroid problem; Arthritis; - PSHx: ganglion removed ankles; left breast surgery; Tubal ligation; D & C; - Social history: Smoking status: Patient states former smoker of tobacco. No barriers to communication noted, The patient speaks fluent Lithuanian, Speaks appropriately for age. - Family history: Not pertinent. - : The pt / caregiver states he / she is not on anticoagulants. Home medication list is obtained from the patient. - Exposure Risk Screening:: None identified. Screenin:20 Screening information is obtained from the patient. Fall risk: No risks identified. pml Assistance ADL's: requires no assistance with activities of daily living. Abuse/DV Screen: The patient / caregiver reports he/she is: not in a situation that causes fear, pain or injury. Nutritional screening: No deficits noted. Advance Directives: Currently, there is no health care proxy. home support is adequate. Assessment: 15:20 General: Appears in no apparent distress, Behavior is appropriate for age, cooperative. pml Pain: Location: left hand Pain currently is 4 out of 10 on a pain scale. Neurological: Level of Consciousness is awake, alert, Oriented to person, place, time. Cardiovascular: Capillary refill < 3 seconds. Respiratory: Airway is patent Respiratory effort is even, unlabored. GI: Abdomen is non- distended. Derm: Skin is pink, warm & dry. dusky and blue tinged to left 5th, 4th and 3rd finger. pt reports numbness and feeling like fingers are "freezing" skin warm to touch, sensation intact, ROM intact. 16:12 General: Resting on stretcher, no apparent distress. resps easy and unlabored, skin pml color unchange. PA in to see patient. 17:16 General: Appears in no apparent distress, Behavior is appropriate for age, cooperative. pml Pain: Location: left hand. Neurological: Level of Consciousness is awake, alert, Oriented to person, place, time. Cardiovascular: Capillary refill < 3 seconds. Respiratory: Airway is patent Respiratory effort is even, unlabored. GI: Abdomen is non- distended. Derm: Skin is pink, warm & dry. skin color to left 5th, 4th and 3rd finger remain dusky and bluish in color. warm to touch. 18:40 General: resting on stretcher, resps easy and unlabored, skin p/w/d. no changes in skin pml color at fingers. voices no complaints. family at bedside. 19:14 General: Appears in no apparent distress, comfortable, Behavior is appropriate for age, ko2 cooperative. Pain: Location: left hand. Neurological: Level of Consciousness is awake, alert. Cardiovascular: Capillary refill < 3 seconds. Respiratory: Airway is patent Respiratory effort is even, unlabored. Derm: Skin is pink, warm & dry. Left hand middle, ring and pinky finger light blue in color warm to touch. ROM intact. Musculoskeletal: Range of motion intact in all extremities. 20:10 General: Appears in no apparent distress, comfortable, Behavior is appropriate for age, ko2 cooperative. Neurological: Level of Consciousness is awake, alert. Respiratory: Airway is patent Respiratory effort is even, unlabored. Derm: Skin is pink, warm & dry. 21:12 General: Pt in MRI. ko2 22:06 General: Appears in no apparent distress, pt watching movie on Ipad. . Neurological: ko2 Level of Consciousness is awake, alert. Respiratory: Airway is patent Respiratory effort is even, unlabored. Musculoskeletal: Range of motion intact in all extremities. 22:56 General: Appears in no apparent distress, Behavior is cooperative, Smells of. ko2 Neurological: Level of Consciousness is awake, alert, Oriented to person, place, time. Respiratory: Airway is patent Respiratory effort is even, unlabored. Derm: Skin is pink, warm & dry. 23:40 General: Appears in no apparent distress, comfortable. Neurological: Level of ko2 Consciousness is awake, alert. Respiratory: Airway is patent Respiratory effort is even, unlabored. Derm: Skin is pink, warm & dry. Vital Signs: 12:24 BP 169 / 73; Pulse 104; Resp 18 S; Temp 98.3(O); Pulse Ox 100% on R/A; Weight 109.77 kg gr2 (R); Height 5 ft. 4 in. (162.56 cm) (R); Pain 8/10; 14:51 Pulse 102 MON; Pulse Ox 97% ; pml 14:51 BP 169 / 94 (auto/); pml 15:05 BP 142 / 85 (auto/); pml 15:05 Pulse 92 MON; Pulse Ox 96% ; pml 15:20 Pulse 92 MON; Pulse Ox 95% ; pml 15:20 BP 133 / 78 (auto/); pml 15:35 Pulse Ox 95% ; pml 15:35 BP 143 / 85 (auto/); pml 15:50 Pulse Ox 95% ; pml 15:50 BP 163 / 91 (auto/); pml 16:05 Pulse Ox 94% ; pml 16:05 BP 137 / 85 (auto/); pml 16:20 Pulse Ox 96% ; pml 16:20 BP 144 / 92 (auto/); pml 16:35 Pulse Ox 96% ; pml 16:35 BP 142 / 81 (auto/); pml 16:49 Pulse Ox 95% ; pml 16:50 BP 132 / 79 (auto/); pml 17:11 BP 127 / 71 (auto/); pml 17:14 Pulse 98 MON; Pulse Ox 97% ; pml 17:20 Pulse 88 MON; Pulse Ox 96% ; pml 17:20 BP 119 / 68 (auto/); pml 17:35 Pulse 84 MON; Pulse Ox 96% ; pml 17:35 BP 125 / 69 (auto/); pml 17:50 Pulse 84 MON; Pulse Ox 95% ; pml 17:50 BP 127 / 73 (auto/); pml 18:05 Pulse 86 MON; Pulse Ox 95% ; pml 18:05 BP 130 / 74 (auto/); pml 18:20 Pulse 82 MON; Pulse Ox 95% ; pml 18:20 BP 131 / 74 (auto/); pml 18:35 Pulse 84 MON; Pulse Ox 96% ; pml 18:35 BP 120 / 63 (auto/); pml 18:50 BP 140 / 77 (auto/); ko2 18:50 Pulse 84 MON; Pulse Ox 97% ; ko2 19:04 Pulse 86 MON; Pulse Ox 97% ; ko2 19:05 BP 143 / 78 (auto/); ko2 19:19 BP 153 / 81 (auto/); ko2 19:19 Pulse 86 MON; Pulse Ox 96% ; ko2 19:21 BP 153 / 81; Pulse 86; Resp 18; Temp 97.7(TE); Pulse Ox 96% on R/A; Pain 5/10; surinder 19:35 BP 156 / 86 (auto/); ko2 19:35 Pulse 84 MON; Pulse Ox 98% ; ko2 19:50 BP 155 / 92 (auto/); ko2 19:50 Pulse 84 MON; Pulse Ox 98% ; ko2 23:26 BP 134 / 70; Pulse 89; Resp 16; Temp 97.7; Pulse Ox 98% ; Pain 5/10; ko2 12:24 Body Mass Index 41.54 (109.77 kg, 162.56 cm) gr2 Vitals: 12:24 Log In Time: June 22, 2016 at 12:24. gr2 ED Course: 12:23 Patient visited by Rodney Daniels. gr2 12:23 Patient moved to Waiting gr2 12:24 NO PRIMARY PHYSICIAN, . is Private Physician. gr2 12:27 Patient visited by Rodney Daniels. gr2 12:27 Patient moved to Pre RCE gr2 12:36 Triage Initiated srm 13:05 Patient moved to Ultrasound am17 13:10 Patient moved to Triage 3 jf3 13:11 Patient moved to Pre RCE srm 13:11 Patient moved to Triage 3 srm 14:13 DVT US Upper Returned. EDMS 14:29 Mahesh Escalona PA-C is PHCP. jk8 14:29 Leena Morales MD is Attending Physician. jk8 14:29 Patient visited by Mahesh Escalona PA-C. jk8 14:29 Patient visited by Mahesh Escalona PA-C. jk8 14:39 Christine Spencer,RN is Primary Nurse. js13 14:39 Patient moved to 17 js13 14:47 DVT US Upper Returned. EDMS 14:52 Patient visited by Leena Dillard. sew 14:52 athletic monitor on. Pulse ox on. NIBP on. sew 14:52 EKG done. (by ED staff). Reviewed by Mahesh Escalona PA-C. sew 15:20 The patient / caregiver is instructed regarding the plan of care and ED course. Patient pml has correct armband on for positive identification. Placed in gown. Bed in low position. Call light in reach. Side rails up X2. 15:22 Patient visited by Christine Spencer RN. pml 15:53 [facility] Payment Agreement was scanned into [employer] and attached to record. gjb 16:02 Chest, 2 View (pa\\E\\lat) Returned. EDMS 16:08 Notified physician's assistant media planner of Lorin BOYD notified of serum glucose of 422 mg/dl. kpj 16:12 Patient visited by Christine Spencer,EMMA. pml 17:18 Patient visited by Mahesh Escalona PA-C. jk8 17:18 Patient visited by Christine Spencer RN. pml 17:19 EKG-ADULT Returned. EDMS 18:35 Patient visited by Dee Deal PCA. surinder 18:40 CT Chest Without Contrast Returned. EDMS 18:41 Patient visited by Christine Spencer RN. pml 19:14 Patient visited by Julia Ibanez RN. ko2 19:22 Patient visited by Dee Deal PCA. surinder 19:34 Julia Ibanez,EMMA is Primary Nurse. ko2 19:34 Primary Nurse role handed off by Christine Spencer RN ko2 19:36 PHCP role handed off by Mahesh Escalona PA-C dt4 19:36 Leah Schaffer PA-C is PHCP. dt4 19:54 Patient visited by Leah Schaffer PA-C. dt4 20:12 Patient visited by Julia Ibanez RN. ko2 21:00 Patient moved to [facility] ajs 21:13 Patient visited by Julia Ibanez RN. ko2 21:28 Patient moved to 17 btw 22:03 Zulma Luo is Hospitalizing Provider. dt4 22:05 Patient visited by Julia Ibanez RN. ko2 22:07 Patient visited by Julia Ibanez RN. ko2 23:41 No procedures done that require assistance. ko2 06/23 10:43 T-Sheet-- Draft Copy was scanned into [employer] and attached to record. gb 10:43 ECG/EKG was scanned into [employer] and attached to record. gb 10:44 Radiology Report was scanned into [employer] and attached to record. gb Administered Medications: 06/22 17:16 Drug: NS 0.9% 1000 ml [sodium chloride 0.9 % injection solution] Route: IV; Rate: pml bolus; Site: right antecubital; 21:49 Drug: NS 0.9% 500 ml [sodium chloride 0.9 % intravenous solution] Route: IV; Rate: ko2 bolus; Site: right antecubital; Point of Care Testing: Blood Glucose: 19:25 Blood Glucose: 294 mg/dL; ko2 Ranges: Order Results: Lab Order: CBC with Diff; SPEC'M 06/22/16 15:15 Test: WHITE BLOOD COUNT; Value: 7.6; Range: 4.0-10.0; Units: K/mm3; Status: F Test: RED BLOOD COUNT; Value: 4.11; Range: 4.00-5.40; Units: M/mm3; Status: F Test: HEMOGLOBIN; Value: 11.9; Range: 12.0-16.0; Abnormal: Below low normal; Units: g/dl; Status: F Test: HEMATOCRIT; Value: 37.8; Range: 36.0-47.0; Units: %; Status: F Test: MEAN CORPUSCULAR VOLUME; Value: 91.7; Range: 80.0-96.0; Units: fl; Status: F Test: MEAN CORPUSCULAR HEMOGLOBIN; Value: 28.9; Range: 27.0-33.0; Units: pg; Status: F Test: MEAN CORPUSCULAR HGB CONC; Value: 31.5; Range: 32.0-36.5; Abnormal: Below low normal; Units: g/dl; Status: F Test: RED CELL DISTRIBUTION WIDTH; Value: 14.1; Range: 11.5-14.5; Units: %; Status: F Test: PLATELET COUNT, AUTOMATED; Value: 286; Range: 150-450; Units: k/mm3; Status: F Test: NEUTROPHILS %; Value: 56.1; Range: 36.0-66.0; Units: %; Status: F Test: LYMPH %; Value: 36.7; Range: 24.0-44.0; Units: %; Status: F Test: MONO %; Value: 3.3; Range: 0.0-5.0; Units: %; Status: F Test: EOS %; Value: 2.0; Range: 0.0-3.0; Units: %; Status: F Test: BASO %; Value: 0.5; Range: 0.0-1.0; Units: %; Status: F Test: LARGE UNSTAINED CELL %; Value: 1.3; Range: 0.0-4.0; Units: %; Status: F Test: NEUTROPHILS #; Value: 4.3; Range: 1.8-7.7; Units: K/mm3; Status: F Test: LYMPH #; Value: 2.9; Range: 1.5-4.5; Units: K/mm3; Status: F Test: MONO #; Value: 0.3; Range: 0.0-0.8; Units: K/mm3; Status: F Test: EOS #; Value: 0.2; Range: 0.0-0.50; Units: K/mm3; Status: F Test: BASO #; Value: 0.0; Range: 0.0-0.2; Units: K/mm3; Status: F Test: LARGE UNSTAINED CELL #; Value: 0.1; Range: 0.0-0.4; Units: K/mm3; Status: F Lab Order: BMP; [facility] 06/22/16 15:15 Test: GLUCOSE, FASTING; Value: 422; Range: 70-105; Abnormal: Above upper panic limits; Units: MG/DL; Status: F Test: BLOOD UREA NITROGEN; Value: 17; Range: 7-18; Units: MG/DL; Status: F Test: CREATININE FOR GFR; Value: 1.01; Range: 0.55-1.02; Units: MG/DL; Status: F Test: GLOMERULAR FILTRATION RATE; Value: > 60.0; Range: >51; Status: F Test: SODIUM LEVEL; Value: 138; Range: 136-145; Units: MEQ/L; Status: F Test: POTASSIUM SERUM; Value: 4.7; Range: 3.5-5.1; Units: MEQ/L; Status: F Test: CHLORIDE LEVEL; Value: 101; Range: 98-107; Units: MEQ/L; Status: F Test: CARBON DIOXIDE LEVEL; Value: 25; Range: 21-32; Units: MEQ/L; Status: F Test: ANION GAP; Value: 12; Range: 8-16; Units: MEQ/L; Status: F Test: CALCIUM LEVEL; Value: 9.6; Range: 8.5-10.1; Units: MG/DL; Status: F Test Note: ; Units are mL/min/1.73 m2 Chronic Kidney Disease Staging per NKF: Stage I & II GFR >=60 Normal to Mildly Decreased Stage III GFR 30-59 Moderately Decreased Stage IV GFR 15-29 Severely Decreased Stage V GFR <15 Very Little GFR Left ESRD GFR <15 on TUBULAR STOCK GLASS BULB MACHINE FORMER Lab Order: Cardiac Marker Panel; SPEC'M 06/22/16 15:15 Test: CPK CREATINE PHOSPHOKINASE; Value: 193; Range: 26-192; Abnormal: Above high normal; Units: U/L; Status: F Test: CK-MB VALUE MASS; Value: 1.7; Range: 0.0-3.6; Units: NG/ML; Status: F Test: MB/CK RELATIVE INDEX; Value: 0.88; Range: < OR =4; Status: F Test: TROPONIN I; Value: < 0.02; Range: < 0.10; Units: NG/ML; Status: F Test Note: ; DIAGNOSIS CRITERIA MMB ng/ml Relative Index (RI) NON-AMI < or = 5 N/A [place] > 5 < or = 4 AMI > 5 > 4 Lab Order: Fingerstick Blood Sugar; [facility] 06/22/16 19:24 Test: BEDSIDE GLUCOSE; Value: 294; Range: 70-105; Abnormal: Above high normal; Units: MG/DL; Status: F Lab Order: HEMOGLOBIN A1C; [facility] 06/22/16 15:15 Test: HEMOGLOBIN A1c; Value: 12.6; Range: 4.5-6.2; Abnormal: Above high normal; Units: %; Status: F Test: ESTIMATED AVERAGE GLUCOSE; Value: 315; Range: 60-110; Abnormal: Above high normal; Units: MG/DL; Status: F Lab Order: ERYTHROCYTE SEDIMENTATION RATE; [facility] 06/22/16 15:15 Test: ERYTHROCYTE SEDIMENTATION RATE; Value: 56; Range: 0-30; Abnormal: Above high normal; Units: mm/hr; Status: F Lab Order: C REACTIVE PROTEIN QUANTITATIV; [facility] 06/22/16 15:15 Test: C REACTIVE PROTEIN QUANTITATIV; Value: 1.12; Range: 0.00-0.30; Abnormal: Above high normal; Units: MG/DL; Status: F Lab Order: CARDIAC MARKER PANEL; [facility] 06/22/16 22:40 Test: CPK CREATINE PHOSPHOKINASE; Value: 175; Range: 26-192; Units: U/L; Status: F Test: CK-MB VALUE MASS; Value: 1.5; Range: 0.0-3.6; Units: NG/ML; Status: F Test: MB/CK RELATIVE INDEX; Value: 0.85; Range: < OR =4; Status: F Test: TROPONIN I; Value: < 0.02; Range: < 0.10; Units: NG/ML; Status: F Test Note: ; DIAGNOSIS CRITERIA MMB ng/ml Relative Index (RI) NON-AMI < or = 5 N/A [place]ONE > 5 < or = 4 AMI > 5 > 4 Radiology Order: DVT US Upper Test: DVT US Upper REASON FOR EXAMINATION: Deformity/Swelling; LEFT UPPER EXTREMITY DUPLEX VENOUS ULTRASOUND:; ; HISTORY: Numbness in the left hand. Pain. Deformity and swelling.; ; FINDINGS: The left internal jugular, left axillary, left subclavian, left; brachial, left basilic and left cephalic veins are anechoic and compressible on; two-dimensional scanning in the left upper extremity. Color flow imaging is; homogeneous. There is no evidence of DVT.; ; IMPRESSION:; ; Negative left upper extremity duplex venous ultrasound. No evidence of venous; thrombosis.; ; ; Signed by; Suleman Hutchinson MD 06/22/2016 02:06 P; Radiology Order: Chest, 2 View (pa\\E\\lat) Test: Chest, 2 View (pa\\E\\lat) REASON FOR EXAMINATION: cp; Chest x-ray: Two views.; ; History: Chest pain .; ; Comparison study: No comparison studies .; ; Findings: The lungs are well inflated and free of infiltrate. The pleural; angles are sharp. The heart size is normal. Pulmonary vasculature is not; increased. No significant bony abnormality is seen. EKG electrodes are noted.; ; Impression:; ; Negative chest x-ray.; ; ; Signed by; Suleman Hutchinson MD 06/22/2016 03:48 P; Radiology Order: EKG-ADULT Test: EKG-ADULT REASON FOR EXAMINATION: dvt; Stationary ECG Study; [facility] - ED; ; Test Date: 2016-06-22; Pat Name: MAMIE HOWARD Department:; Room: -; Gender: F Knifer Up: frances; : 1960 Requested By: MAHESH Larson PA-C; Order Number: [id number] Reading MD: Joss Perea; Measurements; Intervals [place]; Rate: 89 P: 50; MO: 151 QRS: 11; QRSD: 80 T: 29; QT: 361; QTc: 440; Interpretive Statements; SINUS RHYTHM; ; ; Electronically Signed On 06-22-2016 16:55:46 EST by Joss Perea; Radiology Order: CT Chest Without Contrast Test: CT Chest Without Contrast REASON FOR EXAMINATION: rule out tumor, thoracic outlet; ; CT of the chest without contrast; Clinical statement: rule out mass. Possible thoracic outlet syndrome.; Technique: Multiple axial CT images were obtained with 5 mm cuts through the chest without administra; tion of contrast.; No comparison is available.; Findings: There is no thoracic lymphadenopathy. The visualized portions of the thyroid gland is unrem; arkable. There are no pericardial or pleural effusions. The lungs are clear. Limited imaging of the u; pper abdomen does not demonstrate any acute abnormalities. Diffuse heterogeneous low attenuation of h; epatic parenchyma is noted. There are no suspicious osseous lesions.; Impression:; 1. Unremarkable CT examination of the chest.; 2. Fatty infiltration of the liver.; ; Outcome: 19:19 Discharge ordered by Provider. jk8 22:05 Decision to Hospitalize by Provider. dt4 23:40 Discharge Assessment: Patient awake, alert and oriented x 3. No cognitive and/or ko2 functional deficits noted. Patient verbalized understanding of disposition instructions. patient administered narcotics - no. The following High Risk Discharge criteria are identified: None. Admitted to Med/Surg accompanied by tech, via wheelchair, with chart. Condition: stable. CT Study completed. MRI Study completed. Property :Personal belongings accompany Pt. 23:41 Admission hand-off: Report Faxed Fax receipt verified by Elizabeth Arevalo RN 4 PAV. ko2 23:57 Patient left the ED. jewell Signatures: Dispatcher [employer] EDMS Dorothy Clayton, RN Paris Cavanaugh RN Tiffany Harry RN EMMA Petersen, Radha, Reg Reg gb Cristhian Constantino PA PA btw Ewald, Destiny, SALES AND SERVICE ASSOCIATE SALES AND SERVICE ASSOCIATE surinder King, Christine Gleason,RN Shirley ArroyoRN RN js13 Leena Dillard Gainslee gr2 Shikha Henning am17 Leah Schaffer PA-C PA-C dt4 Julia IbanezRN RN ko2 Mahesh Escalona PA-C PAChanning jk8 Alvaro Bautista,EMMA RN jf3 Sara Cuenca Chart Complete MTDD
--- NOTE | 2016-06-25 00:58 | EDDOCDS ---
Physician Documentation [facility] Name: Gail Garcia Age: 56 yrs Sex: Female : 1960 Arrival Date: 06/22/2016 Time: 12:22 Bed 17 Private MD: NO PRIMARY PHYSICIAN, . Disposition: 06/22/16 22:05 Hospitalization ordered by Zulma Ibanez for Inpatient Admission. Preliminary diagnosis are Thromboangiitis obliterans [Buerger's disease] - AFFECTING LEFT HAND, Pain in left hand, Hyperglycemia, unspecified. - Bed requested for 4 [place]. - Status is Inpatient Admission. jewell - Condition is Stable. - Problem is new. - Symptoms are unchanged. Historical: - Allergies: PENICILLINS; Bactrim; IV Dye; - Home Meds: 1. metformin 500 mg Oral Tb24 2 times per day 2. levothyroxine 100 mcg Oral cap 1 cap once daily - PMHx: Diabetes - NIDDM: controlled; Thyroid problem; Arthritis; - PSHx: ganglion removed ankles; left breast surgery; Tubal ligation; D & C; - Social history: Smoking status: Patient states former smoker of tobacco. No barriers to communication noted, The patient speaks fluent Ukrainian, Speaks appropriately for age. - Family history: Not pertinent. - : The pt / caregiver states he / she is not on anticoagulants. Home medication list is obtained from the patient. - Exposure Risk Screening:: None identified. Vital Signs: 06/22 12:24 BP 169 / 73; Pulse 104; Resp 18 S; Temp 98.3(O); Pulse Ox 100% on R/A; Weight 109.77 kg gr2 / 242 lbs (R); Height 5 ft. 4 in. (162.56 cm) (R); Pain 8/10; 14:51 Pulse 102 MON; Pulse Ox 97% ; pml 14:51 BP 169 / 94 (auto/); pml 15:05 BP 142 / 85 (auto/); pml 15:05 Pulse 92 MON; Pulse Ox 96% ; pml 15:20 Pulse 92 MON; Pulse Ox 95% ; pml 15:20 BP 133 / 78 (auto/); pml 15:35 Pulse Ox 95% ; pml 15:35 BP 143 / 85 (auto/); pml 15:50 Pulse Ox 95% ; pml 15:50 BP 163 / 91 (auto/); pml 16:05 Pulse Ox 94% ; pml 16:05 BP 137 / 85 (auto/); pml 16:20 Pulse Ox 96% ; pml 16:20 BP 144 / 92 (auto/); pml 16:35 Pulse Ox 96% ; pml 16:35 BP 142 / 81 (auto/); pml 16:49 Pulse Ox 95% ; pml 16:50 BP 132 / 79 (auto/); pml 17:11 BP 127 / 71 (auto/); pml 17:14 Pulse 98 MON; Pulse Ox 97% ; pml 17:20 Pulse 88 MON; Pulse Ox 96% ; pml 17:20 BP 119 / 68 (auto/); pml 17:35 Pulse 84 MON; Pulse Ox 96% ; pml 17:35 BP 125 / 69 (auto/); pml 17:50 Pulse 84 MON; Pulse Ox 95% ; pml 17:50 BP 127 / 73 (auto/); pml 18:05 Pulse 86 MON; Pulse Ox 95% ; pml 18:05 BP 130 / 74 (auto/); pml 18:20 Pulse 82 MON; Pulse Ox 95% ; pml 18:20 BP 131 / 74 (auto/); pml 18:35 Pulse 84 MON; Pulse Ox 96% ; pml 18:35 BP 120 / 63 (auto/); pml 18:50 BP 140 / 77 (auto/); ko2 18:50 Pulse 84 MON; Pulse Ox 97% ; ko2 19:04 Pulse 86 MON; Pulse Ox 97% ; ko2 19:05 BP 143 / 78 (auto/); ko2 19:19 BP 153 / 81 (auto/); ko2 19:19 Pulse 86 MON; Pulse Ox 96% ; ko2 19:21 BP 153 / 81; Pulse 86; Resp 18; Temp 97.7(TE); Pulse Ox 96% on R/A; Pain 5/10; surinder 19:35 BP 156 / 86 (auto/); ko2 19:35 Pulse 84 MON; Pulse Ox 98% ; ko2 19:50 BP 155 / 92 (auto/); ko2 19:50 Pulse 84 MON; Pulse Ox 98% ; ko2 23:26 BP 134 / 70; Pulse 89; Resp 16; Temp 97.7; Pulse Ox 98% ; Pain 5/10; ko2 12:24 Body Mass Index 41.54 (109.77 kg, 162.56 cm) gr2 MDM: 13:00 DVT US Upper Ordered. EDMS 14:38 Medical Lab Technician ordered. jk8 14:38 DVT US Upper Reviewed. jk8 14:39 Chest, 2 View (pa\E\lat) Ordered. EDMS 14:43 ECG WITH READING ER PHYS+CARDIAG ordered. EDMS 15:05 CBC with Diff Ordered. EDMS 15:05 BMP Ordered. EDMS 15:05 Cardiac Marker Panel Ordered. EDMS 15:25 DVT US Upper Reviewed. jk8 15:50 Financial registration complete. gjb 15:53 [facility] Payment Agreement was scanned into [employer] and attached to record. gjb 16:02 CBC with Diff Reviewed. jk8 16:09 Chest, 2 View (pa\E\lat) Reviewed. jk8 16:21 Cardiac Marker Panel Reviewed. jk8 16:21 BMP Reviewed. jk8 16:48 IV Saline Lock ordered. jk8 16:48 NS 0.9% 1000 ml IV at bolus once ordered. jk8 16:56 CT Chest Without Contrast Ordered. EDMS 19:19 Accucheck ordered. jk8 19:31 Fingerstick Blood Sugar Ordered. EDMS 19:56 MRI Screening Tool - Place on chart, inform RN ordered. dt4 19:56 [facility] ordered. dt4 19:57 ED course: SPOKE WITH DR. IBANEZ (HOSPITALIST) REGARDING THIS PT. ADVISED TO GET MRA OF THE dt4 LEFT SHOULDER/ARM AND SPEAK WITH HIM AGAIN WITH RESULTS. SPOKE WITH PT AND FAMILY MEMBER AT THIS TIME AND ALL IN AGREEMENT OF MRA AT THIS TIME. PT STATES HAD REACTION TO CT DYE IN THE PAST, BUT NOT MRI. PT VOICED UNDERSTANDING FOR MRA AT THIS TIME. RESTING IN BED IN NAD AT THIS TIME.. 19:58 [facility] Order complete. ajs 19:58 MRI Screening Tool - Place on chart, inform RN complete. ajs 20:24 ED course: AT THIS TIME, DR. IBANEZ CALLED AND SPOKE WITH DR. PERDUE (RADIOLOGY) AND HE WILL dt4 COME IN TO PERFORM THE MRA ON THIS PT. WILL DISCUSS RESULTS WITH DR. IBANEZ WHEN RECEIVED. . 20:30 MRA FOREARM W/O FOLL BY WITH Ordered. EDMS 21:14 NS 0.9% 500 ml IV at bolus once ordered. dt4 21:15 HEMOGLOBIN A1C Ordered. EDMS 21:51 ED course: CALL PLACED TO [facility] AT THIS TIME, PER DR. IBANEZ, TO SPEAK WITH VASCULAR dt4 SURGEON REGARDING THIS PT'S MRI REPORT (CONSISTENT WITH BUERGER'S DISEASE). ADVISED IF NO SURGICAL INTERVENTION NEEDED TONIGHT, DRSara IBANEZ WILL ADMIT TO HIS SERVICE FOR GLUCOSE CONTROL. . 21:55 BED REQUEST+ADM ordered. EDMS 22:05 ED course: SPOKE WITH DR. CAMP, VASCULAR SURGEON AT [facility] IN [place], [facility]. ADVISED THERE IS NO VASCULAR INTERVENTION NEEDED OR AVAILABLE AT THIS TIME. ADVISED WHEN VASCULAR ISSUE OCCUR DISTAL TO THE WRIST, IT SHOULD BE ADDRESSED BY A HAND SURGEON. . 22:29 ELECTROCARDIOGRAM ADULT ordered. EDMS 22:29 ERYTHROCYTE SEDIMENTATION RATE Ordered. EDMS 22:29 THYROID PROFILE Ordered. EDMS 22:29 CARDIAC RISK PROFILE Ordered. EDMS 22:29 COMPLETE BLOOD COUNT Ordered. EDMS 22:30 BASIC METABOLIC PROFILE Ordered. EDMS 22:30 MAGNESIUM LEVEL Ordered. EDMS 22:32 Admission / Observation Status ordered. EDMS 22:32 CONSISTENT CARBOHYDRATES ordered. EDMS 22:33 CARDIAC MARKER PANEL Ordered. EDMS 02/06 10:43 T-Sheet-- Draft Copy was scanned into [employer] and attached to record. gb 10:43 ECG/EKG was scanned into [employer] and attached to record. gb 10:44 Radiology Report was scanned into [employer] and attached to record. Point of Care Testing: Blood Glucose: 02 19:25 Blood Glucose: 294 mg/dL; ko2 Ranges: Administered Medications: 17:16 Drug: NS 0.9% 1000 ml [sodium chloride 0.9 % injection solution] Route: IV; Rate: pml bolus; Site: right antecubital; 21:49 Drug: NS 0.9% 500 ml [sodium chloride 0.9 % intravenous solution] Route: IV; Rate: ko2 bolus; Site: right antecubital; Signatures: Dispatcher [employer] EDOR Paris Heath RN RN srm Newman, Jill New, RN RN jan Barnhardt, Gloria, [place] Reg Alonzo Corey, Flight Line Mechanic Unit ml3 Rosmery Malik Paulina, RN RN pml Tschudi, Diane, PA-C PA-C dtMahesh Gaines PA-C PA-C jk8 Sara Cuenca Kari RN ko2 The chart was reviewed and I authenticate all verbal orders and agree with the evaluation and treatment provided.Corrections: (The following items were deleted from the chart) 16:58 16:49 CT Chest with contrast+CT ordered. EDMS EDMS 22:33 22:29 C REACTIVE PROTEIN QUANTITATIV ordered. EDMS EDMS Attachments: 15:53 [facility] [place] [facility] 06/23 10:43 T-Sheet-- Draft Copy gb 10:43 ECG/EKG gb Chart Complete MTDD
[2016-06-25] MEDS: IBUPROFEN 400 MG TAB PO PRN (05:55)
[2016-06-25] MEDS: ACETAMINOPHEN TAB 650MG DOSE (2X325MG) PO PRN (05:56)
[2016-06-25] MEDS: HEPARIN SOD (PORCINE) 5000 UNITS/ML VIAL SC SCH ×2 (05:56→14:00)
[2016-06-25] MEDS: LEVOTHYROXINE 0.1 MG TAB (100 MCG) PO SCH (05:56)
[2016-06-25 06:00] VITALS: BP 132/86
[2016-06-25 06:15] LABS: MEAN CORPUSCULAR HEMOGLOBIN 28.9 pg (27.0-33.0); MEAN CORPUSCULAR HGB CONC 32.1 g/dl (32.0-36.5); WHITE BLOOD COUNT 4.7 K/mm3 (4.0-10.0)
[2016-06-25 06:21] LABS: ANION GAP 7 MEQ/L (8-16); BLOOD UREA NITROGEN 16 MG/DL (7-18); CALCIUM LEVEL 8.2 MG/DL (8.5-10.1); CARBON DIOXIDE LEVEL 27 MEQ/L (21-32); CHLORIDE LEVEL 106 MEQ/L (98-107); CREATININE FOR GFR 0.67 MG/DL (0.55-1.02); GLOMERULAR FILTRATION RATE > 60.0 (>51); GLUCOSE, FASTING 226 MG/DL (70-105); MAGNESIUM LEVEL 1.8 MG/DL (1.8-2.4); POTASSIUM SERUM 4.2 MEQ/L (3.5-5.1); SODIUM LEVEL 140 MEQ/L (136-145)
[2016-06-25] MEDS: ASPIRIN 81 MG ENTERIC TAB PO SCH (08:40)
[2016-06-25] MEDS: MELOXICAM (MOBIC) 7.5 MG TAB PO SCH (08:40)
[2016-06-25] MEDS: LEVEMIR (INSULIN DETEMIR) 1 UNITS/0.01ML SC SCH (08:40)
[2016-06-25] MEDS: HumaLOG INSULIN (NovoLOG) PER UNIT SC SCH ×2 (08:41→12:46)
[2016-06-25] MEDS: SENOKOT S TAB PO SCH (08:41)
[2016-06-25] MEDS: PANTOPRAZOLE 40MG TAB (PROTONIX) PO SCH (08:41)
[2016-06-25] MEDS: metFORMIN (GLUCOPHAGE) 500 MG TAB PO SCH (08:41)
[2016-06-25 08:45] VITALS: BP 128/78
[2016-06-25] MEDS: amLODIPine 5 MG TAB PO SCH (08:45)
[2016-06-25] MEDS ORDERED: ACETAMINOPHEN 500 MG TAB PO ONE (09:00)
[2016-06-25] MEDS ORDERED: IBUPROFEN 800 MG TAB PO ONE (09:15)
--- NOTE | 2016-06-26 14:05 | DSES ---
DATE OF ADMISSION: 06/22/2016 DATE OF DISCHARGE: 06/25/2016 PRIMARY CARE PROVIDER: Yaniv Garcia in [place] DISCHARGE DIAGNOSES: 1. Buerger's disease. 2. Morbid obesity. 3. Uncontrolled diabetes. 4. Hyperlipidemia. 5. Hypertension. 6. History of left breast lumpectomy. 7. Hypothyroidism. 8. Osteoarthritis. DISCHARGE MEDICATIONS: - Levemir insulin 10 units subcutaneously twice a day - atorvastatin 40 mg at bedtime - aspirin 81 mg daily - amlodipine 5 mg daily - Synthroid 100 mcg daily - meloxicam 50 mg by mouth daily - metformin 500 mg by mouth twice a day HOSPITAL COURSE: This is a 56-year-old female from [place] who has been visiting family up in [place], presented to the hospital with left fifth and third digit pain, numbness and cyanosis. The patient has a history of poorly controlled type 2 diabetes with A1/c of greater than 12. The patient has been having these symptoms for the past 2 days with the pain going up to her wrist and forearm, worsened with movement. Has not been following with a doctor since last October. The patient had an upper extremity MR angio done of the left forearm and wrist, which showed intact radial and ulnar arteries. There was multifocal atherosclerotic occlusive disease of the carpal arches and their branches in the hand, extensively, consistent with Buerger's disease. The patient's case was discussed with vascular surgeon and it was decided to start the patient on aspirin and calcium channel mireille, amlodipine. As per recommendation of Dr. Mariano, who is a vascular surgeon at [facility], recommended tight blood sugar control and outpatient followup. The patient's symptoms improved over the next two days. The patient was started on insulin because of very high A1/c with better control of blood sugars. On the day of discharge, the patient was functioning at her baseline. Her symptoms have resolved, and the patient was discharged home in stable condition. PHYSICAL EXAMINATION: VITAL SIGNS: Temperature 96.8, pulse 103, respiratory rate 18, blood pressure 128/78, pulse oximetry 96% on room air. GENERAL: The patient is awake, alert and oriented times three. Sitting up in bed in no acute distress. HEENT: Normocephalic, atraumatic. Moist mucous membranes. Anicteric eyes. CHEST: Clear to auscultation. CARDIOVASCULAR: S1, S2. Regular. ABDOMEN: Soft, nontender. Bowel sounds present. EXTREMITIES: No edema. LABORATORY DATA: WBC 4.7, hemoglobin 11.1, platelets 244. Sodium 140, potassium 4.2, chloride 106, bicarbonate 27, BUN 16, creatinine 0.6, glucose 226, calcium 8.2, magnesium 1.8, A1/c 12.6. Triglycerides 180, cholesterol 200, LDL 122, TSH was 2.5. DISPOSITION: The patient is discharged home in stable condition. DISCHARGE INSTRUCTIONS: The patient is to followup with primary care provider in 1 to 2 weeks. Carbohydrate consistent diet. Activity as tolerated. The patient is advised to check her sugars at least two times per day and advised to take her insulin regularly.
== END 2016-06-25 14:48 | disposition home or self-care (01) | DRG 197 ==
LOC: M ED 12:22 → M MSPAV 22:25 → M ED INP 22:26 → M MSPAV 23:58
PROVIDERS: ADMIT Hospitalist; ATTEND Internal Medicine Nephrology
DX: I73.1 Thromboangiitis obliterans [Buerger's disease] (principal); E66.01 Morbid (severe) obesity due to excess calories; I10 Essential (primary) hypertension; E11.9 Type 2 diabetes mellitus without complications; E78.5 Hyperlipidemia, unspecified; E03.9 Hypothyroidism, unspecified; M19.90 Unspecified osteoarthritis, unspecified site; Z79.899 Other long term (current) drug therapy; Z79.82 Long term (current) use of aspirin; Z88.0 Allergy status to penicillin; Z88.8 Allergy status to other drugs, medicaments and biological substances; Z91.041 Radiographic dye allergy status; Z87.891 Personal history of nicotine dependence

== ENCOUNTER 2017-07-06 06:27 | Emergency (ER) | payer OTHER | END 2017-07-06 08:06 | disposition home or self-care (01) | LOC: M ED 06:27 | DX: K02.9 Dental caries, unspecified (principal); K08.89 Other specified disorders of teeth and supporting structures; K08.409 Partial loss of teeth, unspecified cause, unspecified class; I25.2 Old myocardial infarction; E11.9 Type 2 diabetes mellitus without complications; I10 Essential (primary) hypertension; Z87.891 Personal history of nicotine dependence; Z79.4 Long term (current) use of insulin; Z79.899 Other long term (current) drug therapy; Z88.0 Allergy status to penicillin; Z88.1 Allergy status to other antibiotic agents; Z91.041 Radiographic dye allergy status | CPT/HCPCS: 99283 ==